=== PATIENT | male | born 1955 | race Caucasian/White ===

== ENCOUNTER 2018-06-15 14:39 | Inpatient (IN) | payer MEDICARE, MEDICAID ==
[2018-06-15] MEDS ORDERED: Diltiazem 125 MG/25 ML ONE (15:06)
[2018-06-15] MEDS ORDERED: Acetaminophen 325 MG TAB PO PRN (16:00)
[2018-06-15] MEDS ORDERED: HYDROcodone/Acetaminophen 5/325 mg Tablet PO PRN ×2 (16:00)
[2018-06-15 16:10] LABS: Lavender RECEIVED; Red RECEIVED
[2018-06-15 16:12] LABS: #Lymphocytes 1.3 thou/uL (1.20-3.40); #Monocytes 0.5 thou/uL (0.11-0.59); #Neutrophils 6.9 thou/uL (1.40-6.50); %Basophils 0.6 % (0.0-1.0); %Eosinophils 0.3 % (0.0-10.0); %Lymphocytes 14.8 % (21.0-51.0); %Monocytes 5.6 % (0.0-10.0); %Neutrophils 78.6 % (42.0-75.0); Hemoglobin 15.6 g/dL (14.0-18.0); Mean Corpuscular HGB CONC 32.7 g/dL (32.0-36.0); Mean Corpuscular Hemoglobin 33.2 pg (27.0-31.0); Mean Platelet Volume 7.9 fL (7.4-10.4); Platelet Count 167 thou/uL (130-400); RBC Distribution Width 12.2 % (11.5-14.5); Red Blood Cell (RBC) Count 4.71 mill/uL (4.70-6.10); White Blood Cell (WBC) Count 8.8 thou/uL (4.8-10.8)
[2018-06-15 16:23] LABS: Prothrombin Time 13.5 SEC (12.0-14.7)
[2018-06-15 16:24] LABS: PTT 29.5 SEC (22.9-36.1)
[2018-06-15] MEDS ORDERED: Diltiazem 125 MG in Sodium Chloride 0.9% 100 ML IVPB SCH (16:30)
[2018-06-15] MEDS ORDERED: Aspirin Chewable 81 MG TAB ONE (16:35)
[2018-06-15 16:36] LABS: ALT (SGPT) 21 U/L (8-55); AST (SGOT) 19 U/L (5-34); Albumin 3.7 g/dL (3.4-4.8); Alkaline Phosphatase 75 U/L (40-150); Anion Gap 13 mmol/L (10-20); BUN (Urea Nitrogen) 19 mg/dL (8.4-25.7); Bilirubin, Total 0.5 mg/dL (0.2-1.2); Calc. Creatinine Clearance 0 mL/min (70-130); Calcium 8.7 mg/dL (7.8-10.44); Carbon Dioxide 23 mmol/L (23-31); Chloride 106 mmol/L (98-107); Estimated GFR-MDRD 53; Globulin 2.5 g/dL (2.4-3.5); Glucose 94 mg/dL (80-115); Potassium 4.1 mmol/L (3.5-5.1); Protein, Total 6.2 g/dL (5.8-8.1); Sodium 138 mmol/L (136-145)
[2018-06-15] MEDS ORDERED: Lidocaine Viscous Sol 2% 15 ml UD Cup ONE ×2 (17:38→17:42)
[2018-06-15 20:29] VITALS: BMI 32.3
[2018-06-15] MEDS ORDERED: Lorazepam 2 MG/ML VIAL SLOW IVP PRN (21:05)
--- NOTE | 2018-06-16 01:07 | HP ---
PRIMARY CARE DOCTOR: The patient has no PCP. TIME OF EVALUATION: 08:25 p.m. CHIEF COMPLAINT: Seizure. 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 He came to the hospital after having an episode of seizure. This is the first time the patient had a seizure, generalized tonic-clonic episode with loss of consciousness. No clear triggers. No alleviating factors. The patient had a CT head that was normal. For that reason, he was transferred from [place]. Symptoms are severe. Also, the patient has associated atrial fibrillation with RVR, was placed on Cardizem drip and for that reason, sent to ICU. The heart rate has been better controlled as of now. No clear triggers. No alleviating factors. REVIEW OF SYSTEMS: Unable to fully obtain as patient is nonverbal. This was asked with the mom and with the mom. It seems like was positive for seizures. No other significant fever, chills, cough. No shortness of breath. No leg swelling per mother report. PAST MEDICAL HISTORY: Hypercholesterolemia, MR. SURGICAL HISTORY: Rotator cuff repair. PSYCH HISTORY: No previous psych history. FAMILY HISTORY :Reviewed and non contributory for current presentation SOCIAL HISTORY: No alcohol, no drugs. No smoking history. ALLERGIES: NO KNOWN DRUG ALLERGIES. REPORTED MEDICATIONS: 1. Zetia. 2. Singulair. PHYSICAL EXAMINATION: VITAL SIGNS: Blood pressure 178/151 with heart rate 150, respiratory rate was 18, temperature 98.7. GENERAL APPEARANCE: The patient is alert, oriented, in no acute distress, nonverbal. HEENT: Eyes, normal conjunctiva. Moist oral mucosa. Anicteric. No JVD. RESPIRATORY: Bilateral air entry. No rales. No wheezing. Symmetric expansion. CARDIOVASCULAR: Normal rate, regular rhythm. No murmurs or gallops. No edema. ABDOMEN: Soft. Normal bowel sounds. MUSCULOSKELETAL: Baseline range of motion and strength. No tenderness. SKIN: Warm, intact. No pallor. No rash. No redness. Peripheral pulses are present. Capillary refill seems to be intact. NEUROLOGIC: No evidence of any new focal weakness. The patient is nonverbal, that is his baseline. Cranial nerves seem to be intact. PSYCHIATRIC: The patient is in good mood. No anxiety. Optimal judgment. IMAGING DATA: EKG was reviewed. The patient has atrial fibrillation with rapid ventricular response. Ventricular rate 166, QRS 82, QT corrected 495, nonspecific ST and T-wave abnormalities. LABORATORY DATA: Labs were reviewed. The patient has white count 8.8, hemoglobin 15.6, MCV 101, platelet count 167. Coagulation was normal. Chemistries; sodium 138, potassium 4.1, chloride 106, carbon dioxide 23, anion gap 13, BUN 19, creatinine 1.37 and we do not have records of previous admissions. GFR 53, glucose 94, lactic acid 1.2, calcium 8.7, total bilirubin 0.5. LFTs were normal. Troponin was negative x1. ASSESSMENT AND PLAN: The patient will be placed in the hospital with following medical problems; 1. First-time seizure. We will consult Neurology, we will monitor if the patient has had any other seizures. We will treat with Ativan p.r.n. for any active episodes. 2. Atrial fibrillation with rapid ventricular response. The patient was placed on the Cardizem drip. The rate is controlled as of now. We will consult Cardiology. We will follow recommendations. 3. History of MR. The patient is in very good mood. He is nonverbal, but can communicate with gestures. Will need assistance as inpatient. 4. Deep venous thrombosis prophylaxis. 5. Hyperlipidemia. Reconcile home medications. Low-cholesterol diet is advised. Job ID: [id number] [facility]
--- NOTE | 2018-06-16 14:20 | ULT ---
BILATERAL RENAL ULTRASOUND: HISTORY: Gross hematuria. FINDINGS: The right kidney measures 11 cm in length and the left kidney measures 10.2 cm in length. No hydrone phrosis is seen on either side. A 1.3 cm cyst is noted in the left kidney. There is a Walter cathete r in the urinary bladder. IMPRESSION: Left renal cyst. POS: [facility]
--- NOTE | 2018-06-16 14:54 | CON ---
DATE OF CONSULTATION: 06/16/2018 REASON FOR CONSULTATION: Consultation was originally consulted for retention and Walter placement after Walter trauma. I advised them on what to place and they did this easily without any assistance. There was concern for 1300 in the bladder upon placement. 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 His mother reports that he has seen Dr. Ramsey in the past. This was a few years ago and it was for not emptying his bladder well or prostate issues. She is not exactly sure what surgery was done, but Dr. Ramsey did a surgery possibly on his prostate and at 1 point, he had a catheter for 8 weeks. The last time he saw Dr. Ramsey, he wanted to replace the catheter. The patient refused and they have not been back since and that was at least 2 or 3 years ago or more. I have asked to try to get these records so that I can have a better idea of the prior history. She notes currently they are not taking any medicine for the prostate, but possibly he did take tamsulosin and finasteride in the past; she is not sure. Normally, he has frequency q.2 to 3 hours and nocturia x2. He does feel as though he has to push, but he does feel empty. He reports gross hematuria when asked about blood in the urine, but the mother is not sure that he fully understands the question. But he does report that this has happened twice previously; it was before the catheter trauma. There is no history of urinary tract infections or stones. PAST MEDICAL HISTORY: Significant for the patient being nonverbal with a brain injury at as well as high cholesterol. PAST SURGICAL HISTORY: Includes rotator cuff and the above-mentioned urologic procedure. MEDICATIONS: Include; 1. Zetia. 2. Singulair. ALLERGIES: NONE. SOCIAL HISTORY: He does not smoke, drink, or use drugs. Lives with his mother at home. REVIEW OF SYSTEMS: Reveal there was concern for atrial fibrillation, which is new. He has not had prior arrhythmias. He did not have constipation and normally has loose movements daily. There has been no nausea, vomiting, pain, or other concerns other than the original seizure, which occurred, at which point, he was taken to an outside facility and a catheter was placed and the patient pulled it out and then another was placed for the 1300 as mentioned of yellow urine. He has an elevated creatinine, but the mother denies any renal insufficiency, and she is not aware of any prostate cancer screening with a blood test or finger exam or rectal exam. FAMILY HISTORY: Mother is alive and well without cancer, but is concerned about getting her own medicines when she is away from home and does not have them currently. PHYSICAL EXAMINATION: GENERAL: He is sitting up, eating breakfast comfortably. VITAL SIGNS: Temperature 98.8, blood pressure 103/63, heart rate 62, saturating 93% on room air, and 1150 of yellow urine has come out overnight. HEART: Regular rate and rhythm. No murmurs, gallops, or rubs. LUNGS: Clear to auscultation bilaterally. ABDOMEN: Soft, nondistended, and nontender with normoactive bowel sounds. : Testes were descended bilaterally without masses. Phallus was circumcised with a Walter catheter in place and secured, draining yellow urine. It did not appear to be stuck in the prostate. RECTAL: Digital rectal exam was deferred. EXTREMITIES: He had no significant lower extremity edema. HEENT: No scleral icterus. NECK: No JVD. NEUROLOGIC: Cooperative and appropriate. LABORATORY DATA: CBC from 06/15 reveals normal H and H and platelets. Coags were normal. BUN and creatinine were 19 and 1.37. I do not have urinalysis. ASSESSMENT AND PLAN: A 62-year-old gentleman with some significant prior history of either retention with or without benign prostatic hyperplasia, for which he has seen Dr. Ramsey before. I have asked to try to get these records. He now has Walter trauma from self removal with a catheter in place and draining fine currently. I would document a urine to ensure there is no concern for infection. We will try to get records from Dr. Ramsey and I would add tamsulosin for now. Given the concern about the gross hematuria that may have occurred prior to the Walter trauma, I will order an ultrasound. He would have an indication for outpatient cystoscopy if there was hematuria prior to the Walter trauma. Job ID: [id number] [facility]
--- NOTE | 2018-06-16 16:40 | CON ---
DATE OF CONSULTATION: 06/16/2018 REASON FOR CONSULTATION: Atrial fibrillation with RVR. HISTORY OF PRESENT ILLNESS: Mr. Guerrier is a very pleasant 62-year-old white gentleman, who comes to the hospital for a seizure. He was found to have tonic clonic episode and loss of consciousness by his mother, who is his primary zoo caretaker as he has what appears to be cerebral palsy. He was found to be in atrial fibrillation with RVR on admission, was started on a Cardizem drip, and eventually converted back into sinus bradycardia, heart rate in the 50s. Currently, Mr. Guerrier is not verbal because of his cerebral palsy and is unable to verbalize anything, but his mother tells me that he has never been told that he has atrial fibrillation or anything like this. PAST MEDICAL HISTORY: 1. Hyperlipidemia. 2. Cerebral palsy/mental retardation. PAST SURGICAL HISTORY: Rotator cuff repair. SOCIAL HISTORY: No alcohol, tobacco, or drugs. Mother is decision maker. ALLERGIES: NO KNOWN DRUG ALLERGIES. OUTPATIENT MEDICATIONS: 1. Zetia. 2. Singulair. REVIEW OF SYSTEMS: Unobtainable as the patient is nonverbal. PHYSICAL EXAMINATION: VITAL SIGNS: Temperature 98.7, pulse 70, respiratory rate 19, saturating 94% on room air, and blood pressure 120/77. GENERAL: Awake and alert, cannot assess orientation as he is nonverbal, no distress. HEENT: Normocephalic and atraumatic. NECK: Supple. LUNGS: Clear. CARDIOVASCULAR: S1 and S2. No S3 or S4. Heart rate in the 50s. ABDOMEN: Soft. Positive bowel sounds. EXTREMITIES: Trace edema. SKIN: Warm and dry. LABORATORY DATA: Laboratory work was reviewed. CBC was unremarkable. Coags were normal. Chemistry was unremarkable except for mildly elevated creatinine. Troponin is undetectable x3. EKG was reviewed, atrial fibrillation with RVR in the ER, back to sinus rhythm currently. ASSESSMENT AND PLAN: 1. Atrial fibrillation with rapid ventricular response, currently back in sinus rhythm. This is in the setting of an acute seizure. 2. Seizure disorder. Per Primary Team. 3. Urinary retention. PLAN: 1. Would discontinue diltiazem drip. Would put him on just a low dose beta sara to see if his blood pressure will be able to tolerate this. He is borderline low at that time. 2. Would recommend an aspirin for stroke prophylaxis as his CHADS-VASc score and CHADS2 score is zero. Thank you for letting us take care of your patient. We will follow. Job ID: [id number]
[2018-06-16] MEDS ORDERED: levETIRAcetam 500 MG TAB PO SCH (18:00)
[2018-06-16 18:34] LABS: Bacteria/HPF 1+ HPF (None Seen); RBC/HPF None Seen HPF (0-3); Squamous Epithelial 0-3 HPF (0-3)
[2018-06-16 18:35] LABS: Crystals/HPF 2+ AMORPH URATES HPF (Negative)
--- NOTE | 2018-06-16 20:51 | CON ---
DATE OF CONSULTATION: 06/16/2018 CONSULTING PHYSICIAN: Hospitalist Services. IMPRESSION: 1. New onset seizure with findings consistent with focal onset. 2. Atrial fibrillation with rapid ventricular response. PLAN: 1. Keppra 500 mg twice a day. 2. Office followup. HISTORY OF PRESENT ILLNESS: Mr. Guerrier is a 62-year-old male with a past history of mental retardation. He lives at home with his mother. She noted that he was acting very oddly before they left the house. He seemed to be stumbling around and bumping into furniture. On the drive to the hospital, he continued to look about in a very odd manner. When he arrived in the parking lot, he suddenly vomited and then went into a convulsion. She got him to the emergency room, where he was evaluated. He had a CT scan of the brain done, which was normal. He was subsequently transferred here. He had cardiac arrhythmia and has been evaluated by Cardiology as well. There was no past history of sleep deprivation, drug use, or illness prior to the onset. PAST HISTORY: Rotator cuff issues. ALLERGIES: NONE. SOCIAL HISTORY: No tobacco or alcohol use. FAMILY HISTORY: Noncontributory. MEDICATIONS: Medicine list was reviewed. REVIEW OF SYSTEMS: Limited to what his mother could tell me. He really could not answer questions appropriately. PHYSICAL EXAMINATION: GENERAL: He is a well-nourished, middle-aged man, in no distress. VITAL SIGNS: Pulse 66, respirations 16, he is afebrile. HEENT: Pupils are equal and reactive. Conjunctivae clear. Oropharynx clear. His dentition is ground down diffusely. NECK: Supple. No lymphadenopathy. ABDOMEN: Soft and nontender. EXTREMITIES: No cyanosis, clubbing, or edema. NEUROLOGIC: He was able to follow some simple commands. He was limitedly verbal. Cranial nerves were intact. Motor exam showed good strength bilaterally. There is no fix or drift. Sensation was grossly intact. No tremor. Dysmetria was present. He can walk independently. SUMMARY: Given the focal onset of seizure activity in a gentleman of his age with mental retardation, I suspect this will be a recurrent problem. Therefore, I will go ahead and start him on anticonvulsants. Job ID: [id number]
--- NOTE | 2018-06-16 20:55 | CON ---
DATE OF CONSULTATION: 06/16/2018 HISTORY OF PRESENT ILLNESS: Mr. Guerrier is a very pleasant 62-year-old male who is cared for by his mom. Apparently, he was a very difficult delivery with forceps and was never quite right growing up. He is very cooperative. He helps her take care of the house and take care of the yard and is very functional on most days. Yesterday, she noted that he was bumping into things in the house. He first bumped into a recliner and then into the couch as they were getting ready for her to go over for physical therapy. When they got in the car, he started staring at different things and became less verbal. When she got physical therapy she went in and told him she was taking him to the emergency room and by the time he got to the emergency room, he was fairly rigid. She could not get him out of the car. When they got him into the emergency department, he had a generalized tonoclonic seizure. The progression of this lasted probably 15 or 20 more minutes up to a point where he had a generalized seizure. It is reported that he had an unremarkable head CT. It is unclear to me whether or not this was a CAT scan done with or without contrast, I suspect it is without contrast. He has a limited ability to give a history and most of it is provided in an excellent fashion by his mother. He has had rotator cuff surgery in the past and prostate surgery in the past. Urology was consulted for possible urinary retention. He is on Singulair for allergies and Zetia for lipid disorder. He is on no new medications that she has given him. FAMILY HISTORY: Non contributory. There is no drug allergy reported. SOCIAL HISTORY: He is a nonsmoker, nondrinker, nondrug user, lives with her all the time. His father 10 years ago after knee replacement surgery at [facility]. Apparently after surgery, developed severe abdominal pain. His mother tells me Dr. Israel saw him in consultation and he had already perforated duodenal ulcer and ended up dying of sepsis. She unfortunately had to stay at home with him (Dennys) since he had vertigo that week and she missed being at her 's bedside the whole time, he was in the hospital she says. REVIEW OF SYSTEMS: 10 point review of systems completed, there are no positives in the review of systems. PAST HISTORY: He has had no history of a seizure or a stroke in the past. He was found to be in atrial fibrillation when he arrived to the hospital. PHYSICAL EXAMINATION: VITAL SIGNS: His heart rate is in the 70s, blood pressure 126/71 at noon, respiratory rate is in the teens. GENERAL: He is very pleasant, cooperative, and smiling. He held out his hand when I walked in the room and wanted to keep shaking my hand. HEENT: Sclerae are anicteric. He appears healthy and well fed. NECK: Supple. LUNGS: Clear. HEART: Irregular. S1 and S2 are normal. I did not hear a murmur. ABDOMEN: Soft and nontender. EXTREMITIES: Without clubbing, cyanosis, or edema. IMPRESSION: New onset seizures. I suspect with atrial fibrillation he may have had an embolic event at some point, which created a focus for electrical activity and seizures. He really needs MR imaging of his brain with and without contrast. It would be very likely that he will need anesthesia since he is very fidgety, tends to move all over the bed. She says he has had MRIs in the past and was able to lay still, but I doubt he will be able to lay still for a brain MRI. I will be happy to follow the other physicians caring for him. Cardiology should be consulted for his atrial fibrillation if they have not done. There are no lab abnormalities such as hypercalcemia that had been identified, although there is no ionized calcium it gets unlikely that with a normal serum calcium and normal proteins, this would be an issue. I doubt he has a tumor, but this needs to be ruled out. TIME SPENT: This is 50-minute a consult, with greater than 50% of the time spent on the unit coordinating care. Job ID: [id number] [facility]
[2018-06-16] MEDS: Montelukast Sodium 10 mg Tablet PO SCH (20:56)
[2018-06-16] MEDS: Ezetimibe 10 MG TAB PO SCH (20:56)
[2018-06-16] MEDS: levETIRAcetam 500 MG TAB PO SCH (20:57)
[2018-06-16] MEDS: Nitrofurantoin Monohyd/M-Cryst 100 MG CAP PO SCH (20:58)
--- NOTE | 2018-06-16 22:22 | PDOC.PN ---
- Subjective Encounter Start Date: 06/16/18 Encounter Start Time: 08:50 Essentially non-verbal. Spoke with his mother. He is at his baseline now. - Objective Vital Signs & Weight: Vital Signs (12 hours) Temp Pulse Ox 06/16/18 20:00 97 06/16/18 19:20 98.7 F 06/16/18 11:08 98.7 F Weight Weight 226 lb 5 oz Most Recent Monitor Data Heart Rate from ECG 63 NIBP 111/73 NIBP BP-Mean 85 Respiration from ECG 14 SpO2 94 I&O: 06/15/18 06/16/18 06/17/18 06:59 06:59 06:59 Intake Total 130 1400 Output Total 1150 900 Balance -1020 500 Result Diagrams: 06/15/18 16:03 06/15/18 16:02 Phys Exam - Physical Examination Constitutional: NAD Pleasant. Cooperative. Respiratory: no wheezing, no rales, no rhonchi, clear to auscultation bilateral Cardiovascular: RRR, no significant murmur, no rub Gastrointestinal: soft, non-tender, no distention, positive bowel sounds Musculoskeletal: no edema Neurological: non-focal Dx/Plan (1) Seizure Code(s): R56.9 - UNSPECIFIED CONVULSIONS Status: Acute (2) Atrial fibrillation Code(s): I48.91 - UNSPECIFIED ATRIAL FIBRILLATION Status: Acute (3) Developmental delay, moderate Code(s): R62.50 - UNSP LACK OF EXPECTED NORMAL PHYSIOL DEV IN CHILDHOOD Status : Acute - Plan * Neurology consulted. * Cardiology consulted. * Will likely need shelter antiepileptics. * Converted to NSR. Cards recommended beta sara.
[2018-06-17 07:41] LABS: #Basophils 0.1 thou/uL (0.0-0.2); #Eosinphils 0.1 thou/uL (0.0-0.7); #Lymphocytes 2.8 thou/uL (1.20-3.40); #Monocytes 0.6 thou/uL (0.11-0.59); #Neutrophils 2.9 thou/uL (1.40-6.50); %Basophils 0.8 % (0.0-1.0); %Eosinophils 1.9 % (0.0-10.0); %Lymphocytes 42.9 % (21.0-51.0); %Monocytes 8.9 % (0.0-10.0); %Neutrophils 45.6 % (42.0-75.0); Hemoglobin 14.4 g/dL (14.0-18.0); Mean Corpuscular HGB CONC 34.4 g/dL (32.0-36.0); Mean Corpuscular Hemoglobin 34.8 pg (27.0-31.0); Mean Platelet Volume 7.7 fL (7.4-10.4); Platelet Count 152 thou/uL (130-400); RBC Distribution Width 12.2 % (11.5-14.5); Red Blood Cell (RBC) Count 4.13 mill/uL (4.70-6.10); White Blood Cell (WBC) Count 6.4 thou/uL (4.8-10.8)
[2018-06-17 08:01] LABS: Anion Gap 12 mmol/L (10-20); BUN (Urea Nitrogen) 21 mg/dL (8.4-25.7); Calc. Creatinine Clearance 81 mL/min (70-130); Calcium 8.9 mg/dL (7.8-10.44); Carbon Dioxide 26 mmol/L (23-31); Chloride 107 mmol/L (98-107); Estimated GFR-MDRD 52; Glucose 91 mg/dL (80-115); Potassium 4.2 mmol/L (3.5-5.1); Sodium 141 mmol/L (136-145)
[2018-06-17] MEDS: Nitrofurantoin Monohyd/M-Cryst 100 MG CAP PO SCH ×2 (09:11→21:39)
[2018-06-17] MEDS: levETIRAcetam 500 MG TAB PO SCH ×2 (09:11→21:39)
[2018-06-17] MEDS: Aspirin 81 mg Enteric Coated Tablet PO SCH (09:12)
--- NOTE | 2018-06-17 10:03 | PRG ---
DATE OF SERVICE: 06/17/2018 SUBJECTIVE: I was able to review the records from Dr. Ramsey, which showed that the patient was last seen in March of 2017. Prior to that, he had retention by September of 2015 and wore catheter until his TURP on 11/23/2015, and voided thereafter, but did have retention a month later, but was emptying adequately by January of 2016. Then by January of 2017, his PVR was greater than 700, then greater than 800 and that is when it was asked that he have a catheter put back in and apparently refused at that time and they have not been back since. I reviewed this with the patient and mother and I think it is best for him to go with the catheter since the bladder was distended to at least 1300 if not more previously and to allow significant decompression of the bladder before attempting another voiding trial. I would also consider urodynamics if the patient was tolerant of these in the office in order to identify whether there are concerns for obstruction versus a neurogenic bladder. Cystoscopy may also be helpful to assess for recurrent or residual prostatic tissue and also given the concerns for blood prior to the Walter trauma would be indicated for that. OBJECTIVE: GENERAL: On exam, he is comfortable in the bed, but was annoyed by the beeping of the SCDs, which I was able to hook back up and calmed him and he was otherwise appropriate. VITAL SIGNS: He has been afebrile with vital signs stable. He put out 1700 over the last shift with clear urine draining yellow in the bag and secured. LABORATORY DATA: Labs reveal a urine that showed 1+ bacteria, so I started Macrobid for him for this reason and would continue this for a week. A renal ultrasound was also obtained, which revealed a left renal cyst, but no hydro, no masses, no stones, and a decompressed bladder without any concern for masses in the bladder. ASSESSMENT AND PLAN: We have a 62-year-old gentleman with chronic BPH and incomplete emptying, status post transurethral resection of the prostate in 2016 , who may or may not have recurrent or residual obstruction. For this reason, I would continue tamsulosin and increase it to twice a day as well as add finasteride until it can be further evaluated as an outpatient with the hopes of ultimately getting him voiding on his own. But for now, when he is ready for discharge, I would send him home with a catheter and have him follow up in the office for a voiding trial and ultimately anticipate cystoscopy and urodynamics as well. Job ID: [id number] MTDJose Francisco
[2018-06-17] MEDS ORDERED: Finasteride 5 MG TAB PO SCH (10:45)
[2018-06-17] MEDS ORDERED: ALPRAZolam 0.25 MG TAB PO SCH (12:45)
--- NOTE | 2018-06-17 16:43 | PRG ---
DATE OF SERVICE: 06/17/2018 SUBJECTIVE: Dennys Guerrier has no complaints. He is in a great mood today. He has had no further seizures. OBJECTIVE: VITAL SIGNS: Afebrile. Blood pressure 118/68, heart rate 56, respiratory rate 15. LUNGS: Clear. HEART: Regular rhythm. ABDOMEN: Soft. I am concerned he did move considerably during the attempted MRI, so I have written for 0.25 mg of alprazolam to take 30 minutes prior to his MRI. It is unclear when that will be done. The issues that have to be addressed are: 1. Did he have a stroke leading to this seizure. 2. Will he need anticoagulation for his atrial fibrillation. Dr. Blackwell is following along with the other physicians. Plan is to send him home with catheter drainage while we wait for the prostate medicines to start working. I will continue to follow as long as he is in the hospital. I met with the mother and answered all of her questions. Job ID: [id number]
--- NOTE | 2018-06-17 17:16 | PDOC.CTH ---
Cardiology Progress Note - Subjective No new issues. - Objective Vital Signs Temp 06/17/18 15:28 97.1 F L 06/17/18 11:50 97.1 F L 06/17/18 07:09 98.0 F Weight 229 lb 1 oz 06/16/18 06/17/18 06/18/18 06:59 06:59 06:59 Intake Total 130 2360 Output Total 1150 1700 1300 Balance -1020 660 -1300 - Physical Examination General/Neuro: NAD Neck: no JVD present Lungs: CTA, unlabored respirations Heart: RRR Abdomen: NT/ND Extremities: other: (no edema) - Telemetry Telemetry Rhythm: NSR - Labs Result Diagrams: 06/17/18 07:28 06/17/18 07:28 Troponin/CKMB Troponin I Less than 0.010 ng/mL (< 0.028) 06/15/18 22:49 - Assessment/Plan 1. Afib RVR 2. Seizure new onset. PLAN; - MRI pending to make sure this is not a new CVA from afib causing a seizure. - If acute CVA confirmed then will need chronic anticoagulation.
--- NOTE | 2018-06-17 20:28 | PDOC.PN ---
- Subjective Encounter Start Date: 06/17/18 Encounter Start Time: 13:00 Doing fine. No new complaints. - Objective Vital Signs & Weight: Vital Signs (12 hours) Temp 06/17/18 15:28 97.1 F L 06/17/18 11:50 97.1 F L Weight Weight 229 lb 1 oz Most Recent Monitor Data Heart Rate from ECG 92 NIBP 118/68 NIBP BP-Mean 84 Respiration from ECG 15 SpO2 94 I&O: 06/16/18 06/17/18 06/18/18 06:59 06:59 06:59 Intake Total 130 2360 1080 Output Total 1150 1700 2200 Balance -1020 660 -1120 Result Diagrams: 06/17/18 07:28 06/17/18 07:28 Phys Exam - Physical Examination Constitutional: NAD (N) non-verbal. Respiratory: no wheezing, no rales, no rhonchi, clear to auscultation bilateral Cardiovascular: RRR, no significant murmur, no rub Gastrointestinal: soft, non-tender, no distention Musculoskeletal: no edema Neurological: non-focal Dx/Plan (1) Seizure Code(s): R56.9 - UNSPECIFIED CONVULSIONS Status: Acute (2) Atrial fibrillation Code(s): I48.91 - UNSPECIFIED ATRIAL FIBRILLATION Status: Acute (3) Developmental delay, moderate Code(s): R62.50 - UNSP LACK OF EXPECTED NORMAL PHYSIOL DEV IN CHILDHOOD Status : Acute - Plan * On Keppra. Tolerating. * MRI brain to assess for pathology to account for new onset seizures. * Good rate control with beta sara.
[2018-06-17] MEDS: Montelukast Sodium 10 mg Tablet PO SCH (21:39)
[2018-06-17] MEDS: Tamsulosin HCl 0.4 MG CAP PO SCH (21:39)
[2018-06-17] MEDS: Ezetimibe 10 MG TAB PO SCH (21:39)
[2018-06-18] MEDS ORDERED: Finasteride 5 MG TAB PO SCH (09:00)
[2018-06-18] MEDS: Tamsulosin HCl 0.4 MG CAP PO SCH (09:01)
[2018-06-18] MEDS: levETIRAcetam 500 MG TAB PO SCH (09:01)
[2018-06-18] MEDS: Aspirin 81 mg Enteric Coated Tablet PO SCH (09:01)
[2018-06-18] MEDS: Nitrofurantoin Monohyd/M-Cryst 100 MG CAP PO SCH (09:02)
--- NOTE | 2018-06-18 09:38 | MRI ---
MRI BRAIN WITHOUT CONTRAST: HISTORY: New-onset seizure. COMPARISON: None. FINDINGS: No hemorrhage on the coronal gradient sequence. Coronal images demonstrate symmetric signal intensit y of the hippocampi. No MR evidence of mesiotemporal sclerosis. Central arterial flow voids are maintained. Absent restricted diffusion. No parenchymal mass, mass effect, or midline shift. Age-appropriate grain volume. Cortical stapleton-whi te matter differentiation is preserved. No evidence of hydrocephalus. Calvarium has a normal marrow signal intensity. Midline brain parenchymal structures are unremarkabl e. Adequate aeration of the sinuses and mastoid air cells. IMPRESSION: Unremarkable noncontrast brain MRI. POS: [facility]
[2018-06-18 15:14] VITALS: TEMP 98.6
--- NOTE | 2018-06-18 16:00 | PRG ---
DATE OF SERVICE: 06/18/2018 SUBJECTIVE: Dennys Guerrier has had no seizures. He is in no distress. He is awaiting his echocardiogram tentatively scheduled for discharge today. OBJECTIVE: VITAL SIGNS: He is afebrile. Blood pressure is 120/61, heart rate is 59. LUNGS: Clear. HEART: Regular rhythm. S1 and S2 are normal. ABDOMEN: Soft and nontender. DIAGNOSTIC STUDIES: He did not get contrast with his MRI, but his noncontrast MRI yesterday was unremarkable. IMPRESSION: 1. Status post seizures of unclear origin. 2. 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 3. Atrial fibrillation, now in sinus rhythm. Decisions about anticoagulation will be made by Cardiology. He is stable for discharge. He will go home with an indwelling Walter catheter and need to follow up with Dr. Blackwell at some point, preferably on the same day that he follows up with the urologist here, Dr. Henry. I will see him as needed in the future. Job ID: [id number]
--- NOTE | 2018-06-18 17:00 | PRG ---
DATE OF SERVICE: 06/18/2018 SUBJECTIVE: The patient is set up to go home, although they are awaiting the echo report before he can actually be released. He has a catheter draining fine and yellow urine. He has had no complaints or concerns. We reviewed the plan for outpatient followup and trying a voiding trial as well as continuing tamsulosin twice a day and finasteride once a day. We discussed cystoscopy and how it may be beneficial to give him Valium prior to cystoscopy in the office as the mother thinks that would be helpful for him, so we can arrange this accordingly. OBJECTIVE: VITAL SIGNS: He has been afebrile with vital signs stable. His urine output has been close to 3 L for the last 24 hours and is draining yellow urine without any concern for clots. The urine culture from 06/16, was negative. They should complete seven days total of Macrobid. ASSESSMENT: We have a 62-year-old male with retention and indwelling for now that he discharged home with. He should continue tamsulosin twice a day, finasteride once a day, and complete seven days of the Macrobid. He will follow up in the office for both a voiding trial and cystoscopy. Job ID: [id number] [facility]
--- NOTE | 2018-06-18 17:30 | PDOC.CTH ---
Cardiology Progress Note - Subjective He is doing well. No chest pain. - Objective Vital Signs Temp Pulse Ox 06/18/18 15:14 98.6 F 06/18/18 11:07 97.8 F 06/18/18 07:52 99 06/18/18 07:27 98.0 F Weight 229 lb 1 oz 06/17/18 06/18/18 06/19/18 06:59 06:59 06:59 Intake Total 2360 1080 Output Total 1700 2850 Balance 660 -1770 - Physical Examination General/Neuro: NAD Neck: no JVD present Lungs: CTA, unlabored respirations Heart: RRR Abdomen: NT/ND Extremities: other: (no edema) - Telemetry Telemetry Rhythm: NSR - Labs Result Diagrams: 06/17/18 07:28 06/17/18 07:28 Troponin/CKMB Troponin I Less than 0.010 ng/mL (< 0.028) 06/15/18 22:49 - Assessment/Plan 1. Afib RVR 2. Seizure new onset. PLAN; - No stroke on MRI - LV function normal with normal diastolic function. - May d/c home on a a low dose aspirin only for stroke prophylaxis. - Follow up in the office in 1 month.
== END 2018-06-18 18:25 | disposition home or self-care (01) | DRG 101 ==
LOC: ERS 14:39 → IMCU/EMU 17:22
PROVIDERS: ADMIT Emergency Medicine; ATTEND Emergency Medicine
PROC: 0T9B70Z Drainage of Bladder with Drainage Device, Via Natural or Artificial Opening (ICD-10-PCS; principal; 2018-06-16)
DX: R56.9 Unspecified convulsions (principal); I48.91 Unspecified atrial fibrillation; I34.0 Nonrheumatic mitral (valve) insufficiency; E78.5 Hyperlipidemia, unspecified; R33.9 Retention of urine, unspecified; R31.9 Hematuria, unspecified; T83.018A Breakdown (mechanical) of other urinary catheter, initial encounter; R62.50 Unspecified lack of expected normal physiological development in childhood; F79 Unspecified intellectual disabilities; Z98.890 Other specified postprocedural states; Y83.1 Surgical operation with implant of artificial internal device as the cause of abnormal reaction of the patient, or of later complication, without mention of misadventure at the time of the procedure
CPT/HCPCS: 36415; 51702; 70551; 76770; 80048; 80053; 81015; 83605; 84484; 85025; 85610; 85730; 87086; 93005; 93306; 96361; 96365; 96366; 96376; J7050

== ENCOUNTER 2018-08-04 13:54 | Outpatient (CLI) | payer MEDICARE, OTHER ==
[2018-08-04 15:21] LABS: Hemoglobin 14.6 g/dL (14.0-18.0); Mean Corpuscular HGB CONC 33.5 g/dL (32.0-36.0); Mean Corpuscular Hemoglobin 33.3 pg (27.0-31.0); Mean Corpuscular Volume 99.5 fL (78.0-98.0); Mean Platelet Volume 8.1 fL (7.4-10.4); Platelet Count 183 thou/uL (130-400); RBC Distribution Width 11.9 % (11.5-14.5); Red Blood Cell (RBC) Count 4.39 mill/uL (4.70-6.10); White Blood Cell (WBC) Count 5.7 thou/uL (4.8-10.8)
[2018-08-04 15:34] LABS: Anion Gap 14 mmol/L (10-20); BUN (Urea Nitrogen) 19 mg/dL (8.4-25.7); Calc. Creatinine Clearance 0 mL/min (70-130); Calcium 9.1 mg/dL (7.8-10.44); Carbon Dioxide 25 mmol/L (23-31); Chloride 106 mmol/L (98-107); Estimated GFR-MDRD 53; Glucose 89 mg/dL (80-115); Potassium 4.3 mmol/L (3.5-5.1); Sodium 141 mmol/L (136-145)
== END 2018-08-04 13:55 | disposition home or self-care (01) ==
LOC: LABBT 13:54
PROVIDERS: ATTEND Urology
DX: Z01.812 Encounter for preprocedural laboratory examination (principal); N40.0 Benign prostatic hyperplasia without lower urinary tract symptoms; R33.9 Retention of urine, unspecified; R31.9 Hematuria, unspecified; R39.14 Feeling of incomplete bladder emptying; N39.0 Urinary tract infection, site not specified
CPT/HCPCS: 80048; 85027; 87077; 87186

== ENCOUNTER 2018-08-11 10:18 | Day surgery (SDC) | payer MEDICARE, MEDICAID ==
[2018-08-04 14:16] VITALS: BMI 28.6
[2018-08-11] MEDS ORDERED: cefTRIAXone\\ROCEPHIN 1 GM VIAL ONE (11:04)
[2018-08-11] MEDS ORDERED: Sodium Chloride 0.9% 100 ML ONE (11:04)
[2018-08-11] MEDS ORDERED: Dexamethasone 4 mg/ml Vial ONE (11:05)
[2018-08-11] MEDS ORDERED: Dexamethasone 10 MG/ML VIAL IVPB SCH (11:15)
[2018-08-11] MEDS ORDERED: cefTRIAXone\\ROCEPHIN 1 GM in Sodium Chloride 0.9% 100 ML IVPB SCH (11:15)
[2018-08-11] MEDS ORDERED: Furosemide 20 MG/2 ML VIAL ONE (11:23)
[2018-08-11] MEDS ORDERED: B & O ONE (11:23)
[2018-08-11] MEDS ORDERED: Fentanyl 100 MCG/2 ML VIAL ONE ×2 (11:32)
[2018-08-11] MEDS ORDERED: Midazolam HCl 2 mg/2 ml Vial ONE (11:32)
--- NOTE | 2018-08-12 00:59 | OP ---
DATE OF PROCEDURE: 08/11/2018 PREOPERATIVE DIAGNOSES: Gross hematuria, benign prostatic hyperplasia, prior retention. POSTOPERATIVE DIAGNOSES: Gross hematuria, benign prostatic hyperplasia, prior retention. PROCEDURE PERFORMED: Cystoscopy with GreenLight laser vaporization of bladder neck contracture and the prostate itself using 98,931 joules. SPECIMENS: Prostate. COMPLICATIONS: None. DRAINS REMAININ-Hong [place]er 2-way. ESTIMATED BLOOD LOSS: Less than 50 mL. ANESTHESIA: General with laryngeal mask airway. INDICATIONS: The patient is a 62-year-old male, who was initially seen with bladder outlet obstruction and hematuria in the hospital. Workup was negative from an upper tract standpoing. I attempted to do cystoscopy as an outpatient. However, he did not tolerate this as an outpatient. He also has a history of prior TURP in 2017 and already went into retention since then, so has concern for either persistent or regrowth of the prostate and wanted to evaluate him for this in the office as well; however, it was unable to do so. So, we just planned for if there is any obstructing tissue noted, we would take care of it with GreenLight laser vaporization of prostate at the same time. DESCRIPTION OF PROCEDURE: The patient was brought into the room by Anesthesia, laid on the table in supine position. After receiving general anesthetic, the legs were placed in lithotomy position and his perineum was prepped and draped in the usual sterile fashion. Using a 21-Hong Konger cystoscope initially, the urethra was traversed and the bladder was inspected. There were no lesions throughout the mucosa. The ureteral orifices were in normal position. There was elevated and very hypertrophic bladder neck contraction or trabeculation connecting the ureteral orifices and a hollowed-out portion of it. Anterior proximal portion of the prostatic urethra with persistent or residual or recurrent tissue distally, so I decided that I would take the bladder neck contraction down and open that neck up and take it all the way down to the floor and take away the distal obstruction as well, so power of 80 was used for most of the case, but a power of 180 was used for any larger portion of obstructing tissue. The hypertrophic bladder neck contraction was taken down, leaving two elevated ureteral orifices as I also took the area lateral to the orifices down to the floor of the bladder. When the scope was broken apart to drain the chips and put back in, there was significant bleeding noted and that appeared to be coming from the bladder neck itself. I did take the scope out, put a catheter in, blew the balloon up and leave it on tension for approximately 5 minutes. I was filling and draining the bladder during this time; it remained clear. Then, when the Walter catheter was removed and the bladder reinspected, there was no obvious bleeding noted, so I painted any areas of concern with the power level of 80 and then with a low pressure, there was still no significant bleeding noted. So, at this point, the scope was removed and 20-Hong Konger catheter was placed in to gravity. The patient was then awakened and transferred to PACU in stable condition. Job ID: [id number] [facility]
== END 2018-08-11 15:15 | disposition home or self-care (01) ==
LOC: SDC 10:18
PROVIDERS: ATTEND Urology
PROC: 0TBC8ZZ Excision of Bladder Neck, Via Natural or Artificial Opening Endoscopic (ICD-10-PCS; principal; 2018-08-11)
DX: N32.0 Bladder-neck obstruction (principal); N40.1 Benign prostatic hyperplasia with lower urinary tract symptoms; R33.8 Other retention of urine; R39.14 Feeling of incomplete bladder emptying; I10 Essential (primary) hypertension; Z79.82 Long term (current) use of aspirin; Z79.899 Other long term (current) drug therapy
CPT/HCPCS: 88305; J0696; J1100; J1940; J2250; J3010; J7050

== ENCOUNTER 2019-01-20 20:43 | Inpatient (IN) | payer MEDICARE, MEDICAID ==
[2019-01-20 21:24] LABS: Hemoglobin 16.3 g/dL (14.0-18.0); Mean Corpuscular HGB CONC 34.2 g/dL (32.0-36.0); Mean Corpuscular Hemoglobin 33.7 pg (27.0-31.0); Mean Corpuscular Volume 98.7 fL (78.0-98.0); Platelet Count 187 thou/uL (130-400); RBC Distribution Width 12.9 % (11.5-14.5); Red Blood Cell (RBC) Count 4.82 mill/uL (4.70-6.10); White Blood Cell (WBC) Count 6.9 thou/uL (4.8-10.8)
[2019-01-20] MEDS ORDERED: Digoxin 0.5 MG/2 ML AMP ONE (21:26)
[2019-01-20] MEDS ORDERED: Magnesium 2 GM/50 ML BAG (IN WATER) ONE (21:26)
[2019-01-20 21:39] LABS: Eosinophils 2 % (0-10); Lymphocytes 53 % (21-51); MDiff Complete? YES; Monocytes 5 % (0-10); Neutrophil 40 % (42-75); Platelet Morphology Comment Appears Adequate; RBC Morphology Normal
[2019-01-20 21:43] LABS: ALT (SGPT) 21 U/L (8-55); AST (SGOT) 14 U/L (5-34); Albumin 4.1 g/dL (3.4-4.8); Alkaline Phosphatase 66 U/L (40-150); Anion Gap 9 mmol/L (10-20); BUN (Urea Nitrogen) 25 mg/dL (8.4-25.7); Bilirubin, Total 0.5 mg/dL (0.2-1.2); CK (CPK) 173 U/L (30-200); Calc. Creatinine Clearance 0 mL/min (70-130); Calcium 9.3 mg/dL (7.8-10.44); Carbon Dioxide 33 mmol/L (23-31); Chloride 103 mmol/L (98-107); Estimated GFR-MDRD 46; Globulin 2.4 g/dL (2.4-3.5); Glucose 88 mg/dL (80-115); Lipase 43 U/L (8-78); Potassium 3.9 mmol/L (3.5-5.1); Protein, Total 6.5 g/dL (5.8-8.1); Sodium 141 mmol/L (136-145)
[2019-01-20] MEDS ORDERED: Enoxaparin Sodium 100 MG/ML SYRINGE ONE (22:12)
[2019-01-20] MEDS ORDERED: Diltiazem HCl 125 MG, Admixture Fee 1 EACH in Sodium Chloride 0.9% 100 ML IVPB SCH (22:30)
[2019-01-20 23:43] LABS: Troponin I Less than 0.010 ng/mL (< 0.028)
[2019-01-21 00:42] VITALS: BMI 29.4
[2019-01-21] MEDS ORDERED: Aspirin 325 MG TAB PO SCH ×2 (01:00→09:00)
[2019-01-21] MEDS: Sodium Chloride 0.9% 1,000 ML IV SCH ×2 (01:15→13:24)
[2019-01-21 03:37] LABS: Troponin I Less than 0.010 ng/mL (< 0.028)
[2019-01-21] MEDS: Digoxin 0.5 MG/2 ML AMP SLOW IVP SCH ×2 (03:49→10:52)
[2019-01-21] MEDS: Aspirin 81 mg Enteric Coated Tablet PO SCH (08:34)
[2019-01-21] MEDS: Tamsulosin HCl 0.4 MG CAP PO SCH ×2 (08:35→20:47)
[2019-01-21] MEDS: levETIRAcetam 500 MG TAB PO SCH ×2 (08:35→20:46)
[2019-01-21] MEDS: Dicyclomine 20 MG TAB PO SCH ×2 (08:35→20:45)
[2019-01-21] MEDS: Enoxaparin Sodium 100 MG/ML SYRINGE SC SCH ×2 (08:35→20:48)
[2019-01-21] MEDS: Finasteride 5 MG TAB PO SCH (08:35)
[2019-01-21] MEDS ORDERED: Metoprolol Tartrate 25 MG TAB PO SCH (09:00)
[2019-01-21] MEDS ORDERED: Enoxaparin Sodium 40 MG/0.4 ML SYRINGE SC SCH (09:00)
[2019-01-21] MEDS ORDERED: Diltiazem HCl 125 MG, Admixture Fee 1 EACH in Sodium Chloride 0.9% 100 ML IVPB SCH (09:30)
[2019-01-21] MEDS ORDERED: Sodium Chloride 0.9% 500 ML IV SCH (10:45)
[2019-01-21 15:06] LABS: Hemoglobin 15.4 g/dL (14.0-18.0); Platelet Count 165 thou/uL (130-400)
--- NOTE | 2019-01-21 16:14 | HP ---
CHIEF COMPLAINT: Atrial fibrillation with rapid ventricular response. HISTORY OF PRESENT ILLNESS: This patient is a 63-year-old male with a history of some type of developmental delay related to brain injury. The patient lives with his mother who is minimally verbal, but tends to understand verbal communication fairly well. He was admitted here in June when he had new onset seizure. At that time, he was found to be in atrial fibrillation with rapid ventricular response. He was started on Keppra. He had echocardiogram performed, which showed essentially normal functioning heart. He was seen in consultation by Cardiology and given the fact that the patient had a low ERNESTINA-VASc score and had rapid resolution of his atrial fibrillation, it was felt that he would just be treated with aspirin alone. The patient also had some urinary retention at that time required a Walter catheter. Subsequently, followed up with Dr. Henry as an outpatient, had some type of ablated procedure and has been doing well since then. The patient was having routine followup in [place] with Dr. Blackwell on the when he was noted to be in atrial fibrillation with rapid ventricular response. He was subsequently sent to the emergency room there, where he received IV doses of diltiazem with some improvement of rate control. He had also started a digoxin load. He was subsequently transferred to this facility. The patient currently reports that his head is "swimming" primarily through some hand motion and interpretation of his mother. She said he had not complained of that at all to her and she was surprised whenever he reported that at the visit with Dr. Blackwell's office. The patient is limited in his ability to otherwise express his current symptoms. REVIEW OF SYSTEMS: Notable for significant snoring reported by his mother with some concerns for sleep apnea. He also apparently has good urine flow now with nocturia x3. PAST MEDICAL HISTORY: 1. Noted above, the atrial fibrillation, which was brief, rapidly resolved and in the setting of a new seizure. He now has a recurrence of that. 2. History of seizure disorder, apparently had only the single seizure, none since that time, seems to be well controlled with Keppra. 3. Hyperlipidemia. 4. Developmental delay, presumably from some type of anoxic brain injury at period. PAST SURGICAL HISTORY: Rotator cuff repair and some type of ablated procedure of the prostate. FAMILY HISTORY: Reviewed, noncontributory. SOCIAL HISTORY: No alcohol, drugs, or smoking. The patient is full code and his mother is his surrogate decision maker. CURRENT MEDICATIONS: 1. Tamsulosin 0.4 mg b.i.d. 2. Dicyclomine 20 mg b.i.d. 3. Toprol-XL 12.5 mg daily. 4. Proscar 5 mg daily. 5. Zetia 10 mg at bedtime. 6. Aspirin 81 mg daily. 7. Singulair 10 mg at bedtime. 8. Keppra 500 mg b.i.d. ALLERGIES: NONE. PHYSICAL EXAMINATION: VITAL SIGNS: Currently, temperature 97.9, pulse 127, respirations 13, O2 saturation 97% on room air. BP is 134/94, down as low as 114/81. GENERAL APPEARANCE: Age-appropriate male. He is in no distress. Very pleasant and cooperative. HEENT: PERRL. No OP lesions. NECK: Supple and symmetric. HEART: Irregular rate and tachycardic. There are no murmurs. LUNGS: Clear to auscultation bilaterally with good chest wall expansion and air exchange. ABDOMEN: Soft, nontender, and nondistended. Positive bowel sounds. No masses. No organomegaly. EXTREMITIES: No cyanosis, clubbing, or edema. PSYCH: Again, the patient has normal affect and extremely pleasant. NEURO: The patient has ability to generally follow commands well, seems to have general understanding of conversation, but is not significantly verbal. LABORATORY DATA: Labs here; white count 6.9, hemoglobin 16.3, platelets 187. D-dimer less than 0.27. Sodium 141, potassium 3.9, chloride 103, CO2 is 33, BUN 25, creatinine is 1.53, glucose 88, total bilirubin 0.5, AST 14, ALT 21, CK 173. Troponin negative x3. BNP 341.9. Lipase is 43. EKG shows atrial fibrillation at 96 beats per minute. IMPRESSION AND PLAN: 1. Recurrent atrial fibrillation with rapid ventricular response. The patient previously had been treated with aspirin. At this point with recurrence, we will go ahead and give him full dose of Lovenox. He is on a Cardizem drip at 5 mg/hour. I am going to increase that to 10 given his persistent tachycardia. I have also increased his p.o. metoprolol from 12.5 to 25, and he continues with a digoxin load. Cardiology has been consulted and Dr. Blackwlel, I assume, will continue to follow here. 2. History of seizure disorder. Continue with the Keppra. 3. History of benign prostatic hyperplasia, status post ablated procedure. Continue with the Flomax. 4. Chronic kidney disease stage 3 stable, basically at his baseline. 5. History of some type of anoxic brain injury, stable. 6. Hyperlipidemia, continue with the home medications of Zetia. Job ID: [id number]
--- NOTE | 2019-01-21 16:41 | CON ---
DATE OF CONSULTATION: 01/21/2019 REASON FOR CONSULTATION: AFib with RVR. HISTORY OF PRESENT ILLNESS: Mr. Guerrier is a very pleasant 63-year-old white gentleman who comes to the hospital for AFib with RVR. He was seen in the office by myself yesterday. He was lightheaded and he was found to be in AFib with RVR, heart rate of 155. He was asked to go to the ER. He went to the ER in [place] where he could not be slowed down adequately, so he was started on diltiazem drip and transferred over here for further evaluation. On my evaluation, Mr. Guerrier continues to be in AFib, heart rate in the 100s, into the mid 90s to 110s. He denies any chest pain, tightness, or pressure. He is nonverbal, but he talks with signs and his mother is in the room. He has a history of paroxysmal AFib. This happened in the setting of having had a seizure back in June of this year. He has never had it before. He was back in sinus on that admission and he was placed on a beta sara and has not had any recurrence since. PAST MEDICAL HISTORY: 1. Hyperlipidemia. 2. Cerebral palsy with mental retardation. 3. Paroxysmal atrial fibrillation. 4. CHADS-VASc score of 0. PAST SURGICAL HISTORY: 1. Rotator cuff repair. 2. Recent cystoscopy with GreenLight laser vaporization of bladder neck contracture and of the prostate. This was by Dr. Henry on August of this year. OUTPATIENT MEDICATIONS: Include; 1. Tamsulosin 0.4 mg b.i.d. 2. Dicyclomine. 3. Toprol-XL 12.5 mg a day. 4. Proscar 5 mg a day. 5. Zetia 10 mg at bedtime. 6. Aspirin 81 a day. 7. Montelukast. 8. Keppra 500 mg b.i.d. ALLERGIES: NO KNOWN DRUG ALLERGIES. SOCIAL HISTORY: No alcohol, tobacco, or drugs. Lives with his mother who is his decision maker. She takes care of him as he is nonverbal. REVIEW OF SYSTEMS: Unobtainable as the patient is nonverbal. FAMILY HISTORY: Noncontributory. PHYSICAL EXAMINATION: VITAL SIGNS: Temperature 97.8, pulse 73 to 128, respiratory rate 12, saturating 96% on room air, blood pressure 125/80. GENERAL: Awake, alert. HEENT: Normocephalic and atraumatic. NECK: Supple. LUNGS: Clear to auscultation. CARDIOVASCULAR: S1 and S2. Irregularly irregular. Heart rate in the 90s to 120s. ABDOMEN: Soft. Positive bowel sounds. EXTREMITIES: No edema. SKIN: Warm and dry. LABORATORY DATA: Laboratory work was reviewed. CBC with a white count of 6.9, hemoglobin of 16, hematocrit 47, and platelet count of 187. Coags; D-dimer was undetectable. Chemistries with troponin are undetectable x3. BNP was 341. Creatinine was 1.5, down to 1.39. GFR of 52. Normal sodium and potassium. EKG was reviewed, AFib with RVR. ASSESSMENT: 1. Atrial fibrillation with rapid ventricular response. 2. Hyperlipidemia. PLAN: 1. He is still in Afib with [id number] rates. He was started on diltiazem drip and his blood pressure dropped and had to be discontinued. We will plan on starting full anticoagulation with Eliquis 5 mg b.i.d. We will start him on flecainide 50 mg twice a day as well. We will plan on doing a GARETH cardioversion tomorrow. Hopefully, he will be able to go home tomorrow afternoon or Friday. 2. CHADS-VASc score is 0, so long-term he may be on aspirin only for stroke prophylaxis. However, currently we will give him full anticoagulation with Eliquis, which he will need to be on for at least a month after cardioversion. 3. If these were to recur on antiarrhythmics, we will recommend having an ablation at that point. Thank you for letting me to participate in the care of your patient. We will follow. Job ID: [id number]
[2019-01-21] MEDS: Metoprolol Tartrate 25 MG TAB PO SCH (20:46)
[2019-01-21] MEDS: Ezetimibe 10 MG TAB PO SCH (20:47)
[2019-01-21] MEDS: Flecainide 50 MG TAB PO SCH (20:48)
[2019-01-21] MEDS: Montelukast Sodium 10 mg Tablet PO SCH (20:48)
[2019-01-22] MEDS: Dicyclomine 20 MG TAB PO SCH ×2 (08:47→20:38)
[2019-01-22] MEDS: Enoxaparin Sodium 100 MG/ML SYRINGE SC SCH ×2 (08:47→20:37)
[2019-01-22] MEDS: Aspirin 81 mg Enteric Coated Tablet PO SCH (08:47)
[2019-01-22] MEDS: levETIRAcetam 500 MG TAB PO SCH ×2 (08:47→20:38)
[2019-01-22] MEDS: Metoprolol Tartrate 25 MG TAB PO SCH ×2 (08:48→20:38)
[2019-01-22] MEDS: Finasteride 5 MG TAB PO SCH (08:48)
[2019-01-22] MEDS: Flecainide 50 MG TAB PO SCH (08:48)
[2019-01-22] MEDS: Tamsulosin HCl 0.4 MG CAP PO SCH ×2 (08:48→20:37)
[2019-01-22] MEDS ORDERED: Acetaminophen 325 MG TAB PO PRN (12:53)
--- NOTE | 2019-01-22 15:14 | PDOC.CPN ---
- Subjective Date: 01/22/19 Time: 15:06 Interval history: He had his GARETH and he converted to sinus during the GARETH. No cardioversion was done. - Review of Systems ROS unobtainable: due to mental status - Objective Allergies/Adverse Reactions: Allergies Allergy/AdvReac Type Severity Reaction Status Date / Time No Known Allergies Allergy Verified 08/04/18 14:11 Visit Medications: Current Medications Acetaminophen (Tylenol) 650 mg PO Q6H PRN PRN Reason: Headache/Fever or Pain Last Admin: 01/22/19 13:04 Dose: 650 mg Amiodarone HCl (Cordarone) 400 mg PO BID [facility] Aspirin (Ecotrin) 81 mg PO DAILY [facility] Last Admin: 01/22/19 08:47 Dose: 81 mg Dicyclomine HCl (Bentyl) 20 mg PO BID [facility] Last Admin: 01/22/19 08:47 Dose: 20 mg Ezetimibe (Zetia) 10 mg PO HS [facility] Last Admin: 01/21/19 20:47 Dose: 10 mg Enoxaparin Sodium (Lovenox) 100 mg SC 0900,2100 [facility] Last Admin: 01/22/19 08:47 Dose: 100 mg Finasteride (Proscar) 5 mg PO DAILY [facility] Last Admin: 01/22/19 08:48 Dose: 5 mg Sodium Chloride (Normal Saline 0.9%) 500 mls @ 100 mls/hr IV .Q5H [facility] Stop: 01/22/19 20:14 Levetiracetam (Keppra) 500 mg PO BID [facility] Last Admin: 01/22/19 08:47 Dose: 500 mg Metoprolol Tartrate (Lopressor) 12.5 mg PO BID [facility] Last Admin: 01/22/19 08:48 Dose: 12.5 mg Montelukast Sodium (Singulair) 10 mg PO HS [facility] Last Admin: 01/21/19 20:48 Dose: 10 mg Sodium Chloride (Flush - Normal Saline) 10 ml IVF Q12HR [facility] Last Admin: 01/22/19 08:48 Dose: 10 ml Sodium Chloride (Flush - Normal Saline) 10 ml IVF PRN PRN PRN Reason: Saline Flush Tamsulosin HCl (Flomax) 0.4 mg PO BID [facility] Last Admin: 01/22/19 08:48 Dose: 0.4 mg Vital Signs & Weight: Vital Signs Temp Pulse Resp BP BP Pulse Ox 01/22/19 12:43 97.1 F L 63 18 105/71 99 01/22/19 08:47 96 01/22/19 07:21 98.1 F 153 H 17 110/70 96 01/22/19 04:30 130 H 111/78 01/22/19 03:11 97.4 F L 18 94 L Admit Weight 223 lb Weight 223 lb - Quality Measures Condition: Atrial Fibrillation/Flutter (hx or current) CV meds: Beta Jay Jay: Yes, Anticoagulant: Yes - Physical Exam General: appears well, no apparent distress HEENT: mucus membranes moist Neck: supple neck Cardiac: regular rate and rhythm, no murmur Lungs: clear to auscultation Neuro: grossly intact Abdomen: active bowel sounds Skin: clear Musculoskeletal: normal range of motion - Labs Result Diagrams: 01/21/19 14:57 01/21/19 14:57 Troponin/CKMB Troponin I Less than 0.010 ng/mL (< 0.028) 01/21/19 03:02 - Telemetry Sinus rhythms and dysrhythmias: sinus rhythm Supraventricular conduction: atrial fibrillation - Assessment/Plan Assessment/Plan: 1. Afib RVR, back in sinus 2. Diarrhea, new finding today. 3. Mental retardation, non verbal. 4. Reduced EF on GARETH today at 40-45% PLAN: - Will repeat transthoracic echo as GARETH is not best way to assess LV function. - Will give small dose of IV fluids, 100 ml/hr for 50-0 ml total. - Will stop flecainiede and start amiodarone load. - Once diarrhea improves will switch lovenox to full dose Eliquis.
[2019-01-22] MEDS ORDERED: Sodium Chloride 0.9% 500 ML IV SCH (15:15)
--- NOTE | 2019-01-22 15:21 | PDOC.HOSPP ---
- Subjective Subjective: Had GARETH today and converted to NSR during the GARETH. No cardioversion required. EF was low per Dr. Blackwell. Patient had diarrhea. His mother thinks his headache is part of a viral syndrome. He denies any abdominal pain or other symptoms. - Objective Vital Signs & Weight: Vital Signs (12 hours) Temp Pulse Resp BP BP Pulse Ox 01/22/19 15:09 97.7 F 60 17 113/62 93 L 01/22/19 12:43 97.1 F L 63 18 105/71 99 01/22/19 08:47 96 01/22/19 07:21 98.1 F 153 H 17 110/70 96 01/22/19 04:30 130 H 111/78 Weight Admit Weight 223 lb Weight 223 lb I&O: 01/21/19 01/22/19 01/23/19 06:59 06:59 06:59 Intake Total 2438 Output Total 2450 Balance -12 Result Diagrams: 01/21/19 14:57 01/21/19 14:57 Hospitalist ROS - Medication Medications: Active Medications Generic Name Dose Route Start Last Admin Trade Name Freq PRN Reason Stop Dose Admin Acetaminophen 650 mg 01/22/19 12:53 01/22/19 13:04 Tylenol PO 650 mg Q6H PRN Administration Headache/Fever or Pain Aspirin 81 mg 01/21/19 09:00 01/22/19 08:47 Ecotrin PO 81 mg DAILY TING Administration Dicyclomine HCl 20 mg 01/21/19 09:00 01/22/19 08:47 Bentyl PO 20 mg BID TING Administration Ezetimibe 10 mg 01/21/19 21:00 01/21/19 20:47 Zetia PO 10 mg HS TING Administration Enoxaparin Sodium 100 mg 01/21/19 09:00 01/22/19 08:47 Lovenox SC 100 mg 0900,2100 [facility] Administration Finasteride 5 mg 01/21/19 09:00 01/22/19 08:48 Proscar PO 5 mg DAILY [facility] Administration Levetiracetam 500 mg 01/21/19 09:00 01/22/19 08:47 Keppra PO 500 mg BID TING Administration Metoprolol Tartrate 12.5 mg 01/21/19 15:59 01/22/19 08:48 Lopressor PO 12.5 mg BID TING Administration Montelukast Sodium 10 mg 01/21/19 21:00 01/21/19 20:48 Singulair PO 10 mg HS TING Administration Sodium Chloride 10 ml 01/21/19 09:00 01/22/19 08:48 Flush - Normal Saline IVF 10 ml Q12HR TNIG Administration Tamsulosin HCl 0.4 mg 01/21/19 09:00 01/22/19 08:48 Flomax PO 0.4 mg BID TING Administration - Exam General Appearance: NAD, awake alert Heart: RRR, no murmur, no gallops, no rubs, normal peripheral pulses Respiratory: CTAB, no wheezes, no rales, no ronchi, normal chest expansion, no tachypnea, normal percussion Gastrointestinal: soft, non-tender, non-distended, normal bowel sounds, no palpable masses, no hepatomegaly, no splenomegaly, no bruit Skin: normal turgor Musculoskeletal: normal tone, normal strength, no muscle wasting Psychiatric: normal affect Psychiatric - other findings: appears to have generally good understanding, but not verbal. Hosp A/P (1) Diarrhea Code(s): R19.7 - DIARRHEA, UNSPECIFIED Status: Acute (2) Headache Code(s): R51 - HEADACHE Status: Acute (3) Atrial fibrillation Code(s): I48.91 - UNSPECIFIED ATRIAL FIBRILLATION Status: Acute (4) Developmental delay, moderate Code(s): R62.50 - UNSP LACK OF EXPECTED NORMAL PHYSIOL DEV IN CHILDHOOD Status : Acute (5) Seizure Code(s): R56.9 - UNSPECIFIED CONVULSIONS Status: Acute - Plan Discussed with Dr. Blackwell. Will give some fluids today as he still feels lightheaded with standing. A fib was not the reason for that. Will be cautious with fluids given EF of 40%. Will need to repeat transthoraic echo tomorrow to see if EF improves with NSR. Dr. Blackwell will likely change him to amio. May have viral gastroenteritis.
--- NOTE | 2019-01-22 17:01 | EKG ---
Test Reason : S/P GARETH/INTERVENT'AL Blood Pressure : / mmHG Vent. Rate : 056 BPM Atrial Rate : 056 BPM P-R Int : 152 ms QRS Dur : 084 ms QT Int : 408 ms P-R-T Axes : -14 019 -31 degrees QTc Int : 393 ms Sinus bradycardia Nonspecific ST-T changes When compared with ECG of 20-JAN-2019 20:55, (Unconfirmed) Sinus rhythm has replaced Atrial fibrillation Vent. rate has decreased BY 40 BPM Nonspecific T wave abnormality no longer evident in Lateral leads QT has shortened Confirmed by DR. Bennie HUGHES ([id number]) on 01/22/2019 5:01:16 PM Referred By: JEFFREY Confirmed By:DR. Bennie HUGHES
[2019-01-22] MEDS: Ezetimibe 10 MG TAB PO SCH (20:37)
[2019-01-22] MEDS: Montelukast Sodium 10 mg Tablet PO SCH (20:38)
[2019-01-22] MEDS: Amiodarone 200 MG TAB PO SCH (20:38)
[2019-01-23] MEDS: Finasteride 5 MG TAB PO SCH (08:17)
[2019-01-23] MEDS: Metoprolol Tartrate 25 MG TAB PO SCH (08:17)
[2019-01-23] MEDS: Tamsulosin HCl 0.4 MG CAP PO SCH ×2 (08:18→21:22)
[2019-01-23] MEDS: Enoxaparin Sodium 100 MG/ML SYRINGE SC SCH (08:18)
[2019-01-23] MEDS: Amiodarone 200 MG TAB PO SCH ×2 (08:18→21:21)
[2019-01-23] MEDS: levETIRAcetam 500 MG TAB PO SCH ×2 (08:18→21:22)
[2019-01-23] MEDS: Aspirin 81 mg Enteric Coated Tablet PO SCH (08:18)
[2019-01-23] MEDS: Dicyclomine 20 MG TAB PO SCH ×2 (08:18→21:21)
[2019-01-23] MEDS ORDERED: Acetaminophen 500 MG TAB PO PRN (10:22)
--- NOTE | 2019-01-23 14:23 | PDOC.CPN ---
- Subjective Date: 01/23/19 Time: 14:00 Interval history: Developed sinus efrain to 40s while awake around 1200 today. Patient reports feeling foggy headed. Unsure if correlated to bradycardia. - Review of Systems ROS unobtainable: due to mental status General: denies: fever/chills, weight/appetite/sleep changes, night sweats, fatigue Respiratory: denies: cough, congestion, shortness of breath, exercise intolerance Cardiovascular: denies: chest pain, palpitation, edema, paroxysmal nocturnal dyspnea, orthopnea Gastrointestinal: denies: nausea, vomiting, diarrhea, constipation, abd pain, GI bleeding Musculoskeletal: denies: pain, tenderness, stiffness, swelling, arthritis/ arthralgias Neurological: denies: numbness, syncope, seizure, weakness - Objective Allergies/Adverse Reactions: Allergies Allergy/AdvReac Type Severity Reaction Status Date / Time No Known Allergies Allergy Verified 08/04/18 14:11 Visit Medications: Current Medications Acetaminophen (Tylenol) 1,000 mg PO Q6H PRN PRN Reason: Moderate to Severe Pain (6-10) Amiodarone HCl (Cordarone) 400 mg PO BID [facility] Last Admin: 01/23/19 08:18 Dose: 400 mg Apixaban (Eliquis) 5 mg PO BID [facility] Aspirin (Ecotrin) 81 mg PO DAILY [facility] Last Admin: 01/23/19 08:18 Dose: 81 mg Dicyclomine HCl (Bentyl) 20 mg PO BID [facility] Last Admin: 01/23/19 08:18 Dose: 20 mg Ezetimibe (Zetia) 10 mg PO [facility] Last Admin: 01/22/19 20:37 Dose: 10 mg Finasteride (Proscar) 5 mg PO DAILY [facility] Last Admin: 01/23/19 08:17 Dose: 5 mg Levetiracetam (Keppra) 500 mg PO BID [facility] Last Admin: 01/23/19 08:18 Dose: 500 mg Montelukast Sodium (Singulair) 10 mg PO [facility] Last Admin: 01/22/19 20:38 Dose: 10 mg Sodium Chloride (Flush - Normal Saline) 10 ml IVF Q12HR [facility] Last Admin: 01/23/19 08:18 Dose: 10 ml Sodium Chloride (Flush - Normal Saline) 10 ml IVF PRN PRN PRN Reason: Saline Flush Tamsulosin HCl (Flomax) 0.4 mg PO BID [facility] Last Admin: 01/23/19 08:18 Dose: 0.4 mg Vital Signs & Weight: Vital Signs Temp Pulse Resp BP Pulse Ox 01/23/19 12:00 97.6 F 52 L 18 110/64 96 01/23/19 08:00 98 01/23/19 07:52 98.7 F 57 L 18 123/67 01/23/19 04:00 97.6 F 55 L 16 106/63 94 L Admit Weight 223 lb Weight 223 lb - Quality Measures Condition: Atrial Fibrillation/Flutter (hx or current) CV meds: Beta Jay Jay: Yes, Anticoagulant: Yes - Physical Exam General: appears well, no apparent distress HEENT: mucus membranes moist Neck: supple neck Cardiac: regular rhythm, bradycardia Lungs: clear to auscultation, normal breath sounds Neuro: grossly intact Abdomen: unremarkable, soft, non-tender Skin: clear - Labs Result Diagrams: 01/21/19 14:57 01/21/19 14:57 Troponin/CKMB Troponin I Less than 0.010 ng/mL (< 0.028) 01/21/19 03:02 - Assessment/Plan Assessment/Plan: 1. Afib RVR, back in sinus 2. Mental retardation, non verbal. 4. Reduced EF on GARETH today at 40-45% Stop Toprol. Continue Amio. Repeat ECHO. On Eliquis. RG Agree with the above Hold toprol Needs OP sleep study; mother states he is a loud snorer and likely contributes to FRANCOISE
--- NOTE | 2019-01-23 15:27 | EKG ---
Test Reason : Blood Pressure : / mmHG Vent. Rate : 096 BPM Atrial Rate : 416 BPM P-R Int : 000 ms QRS Dur : 082 ms QT Int : 372 ms P-R-T Axes : 000 032 -39 degrees QTc Int : 469 ms Atrial fibrillation Nonspecific T wave abnormality , probably digitalis effect Prolonged QT Abnormal ECG Confirmed by ABRAHAN SWANN, TRAN ([id number]), scientific publications editor LAN YANES ([id number]) on 01/23/2019 3:27:20 PM Referred By: Confirmed By:TRAN GAUTHIER MD
--- NOTE | 2019-01-23 16:42 | ECHO ---
DATE OF SERVICE: 01/22/19 PREPROCEDURE DIAGNOSIS: Atrial fibrillation with RVR. POSTPROCEDURE DIAGNOSIS: Sinus rhythm, LV dysfunction. The patient is a 63-year-old white gentleman who come to the hospital for atrial fibrillation with RV R. Plan was to do a GARETH cardioversion. The Anesthesiology department provided with sedation for the patient. Please see their notes for det ails. After adequate sedation was achieved, transesophageal probe was inserted into the mouth and into the esophagus. Multiplanar views were obtained. Left ventricle is normal size, normal wall thickness. Systolic function seems to be reduced. EF at a bout 40-45%. Patient was in rapid atrial fibrillation in the 150s at the beginning of the test and LV function was about 20%; however, he converted on his own in the middle of the procedure and he was i n sinus bradycardia in the mid 50s and his heart function EF at that time was about 40-45%. Left atrium is mildly dilated. Left atrial appendage is a small appendage with normal flow velocities and no masses or thrombus. Right atrium is normal sized. The right ventricle is normal size with normal systolic function. Aortic valve is structurally normal with three cusps, no stenosis or regurgitation. Mitral valve is structurally normal. No stenosis. There is moderate MR. Tricuspid valve is structurally normal. There is mild TR. No stenosis. Pulmonary valve is structurally normal. There is mild PI. No stenosis. Thoracic aorta has grade II/V atherosclerotic disease. CONCLUSIONS: 1. LV systolic function at 40-45, while back in sinus rhythm. Lower while in A-fib. 2. Left atrial enlargement. 3. Left atrial appendage with normal velocities and no masses or thrombus. 4. Moderate MR. 5. Mild TR. 6. Mild PI. 7. Patient converted to sinus rhythm during the transesophageal echo and cardioversion was not neede d.
--- NOTE | 2019-01-23 19:10 | PDOC.HOSPP ---
- Subjective Encounter Date: 01/23/19 Encounter Time: 09:15 Subjective: f/u for A-fib RVR now SR on Amiodarone/Toprol. Feels some dizziness when upright. No fever or chills. - Objective Vital Signs & Weight: Vital Signs (12 hours) Temp Pulse Resp BP Pulse Ox 01/23/19 16:00 97.9 F 52 L 18 115/59 L 96 01/23/19 12:00 97.6 F 52 L 18 110/64 96 01/23/19 08:00 98 01/23/19 07:52 98.7 F 57 L 18 123/67 Weight Admit Weight 223 lb Weight 223 lb I&O: 01/22/19 01/23/19 01/24/19 06:59 06:59 06:59 Intake Total 2438 2030 2260 Output Total 2450 800 1680 Balance -12 1230 580 Result Diagrams: 01/21/19 14:57 01/21/19 14:57 Additional Labs: Laboratory Tests 01/20/19 01/20/19 21:14 21:14 Creatinine 1.53 H B-Natriuretic Peptide 341.9 H EKG Reviewed by me: Yes (Tele - SR, occasional bradycardia) Hospitalist ROS - Medication Medications: Active Medications Generic Name Dose Route Start Last Admin Trade Name Freq PRN Reason Stop Dose Admin Amiodarone HCl 400 mg 01/22/19 21:00 01/23/19 08:18 Cordarone PO 400 mg BID [facility] Administration Aspirin 81 mg 01/21/19 09:00 01/23/19 08:18 Ecotrin PO 81 mg DAILY [facility] Administration Dicyclomine HCl 20 mg 01/21/19 09:00 01/23/19 08:18 Bentyl PO 20 mg BID [facility] Administration Ezetimibe 10 mg 01/21/19 21:00 01/22/19 20:37 Zetia PO 10 mg HS [facility] Administration Finasteride 5 mg 01/21/19 09:00 01/23/19 08:17 Proscar PO 5 mg DAILY [facility] Administration Levetiracetam 500 mg 01/21/19 09:00 01/23/19 08:18 Keppra PO 500 mg BID [facility] Administration Montelukast Sodium 10 mg 01/21/19 21:00 01/22/19 20:38 Singulair PO 10 mg HS [facility] Administration Sodium Chloride 10 ml 01/21/19 09:00 01/23/19 08:18 Flush - Normal Saline IVF 10 ml Q12HR [facility] Administration Tamsulosin HCl 0.4 mg 01/21/19 09:00 01/23/19 08:18 Flomax PO 0.4 mg BID [facility] Administration - Exam General Appearance: NAD, awake alert General - other findings: non-verbal Eye: PERRL, anicteric sclera ENT: normocephalic atraumatic, no oropharyngeal lesions Neck: supple, symmetric, no JVD, no thyromegaly, no lymphadenopathy Heart: RRR, no murmur, no gallops, no rubs, normal peripheral pulses Respiratory: CTAB, no wheezes, no rales, no ronchi, normal chest expansion Gastrointestinal: soft, non-tender, non-distended, normal bowel sounds, no palpable masses Extremities: no cyanosis, no clubbing, no edema Skin: normal turgor, no lesions Neurological: cranial nerve grossly intact, no new deficit Neurological - other findings: aphasic Musculoskeletal: normal tone Hosp A/P (1) Atrial fibrillation Code(s): I48.91 - UNSPECIFIED ATRIAL FIBRILLATION Status: Acute Plan: Converted to SR, continue medical mgmt, Eliquis 5mg BID, Amiodarone 400mg BID (2) Seizure Code(s): R56.9 - UNSPECIFIED CONVULSIONS Status: Chronic Plan: Continue Keppra (3) Cardiomyopathy Code(s): I42.9 - CARDIOMYOPATHY, UNSPECIFIED Status: Acute Plan: EF 40-45%, continue med mgmt (4) Headache Code(s): R51 - HEADACHE Status: Acute Plan: Supportive mgmt, ? correlation with Amiodarone (5) Developmental delay, moderate Code(s): R62.50 - UNSP LACK OF EXPECTED NORMAL PHYSIOL DEV IN CHILDHOOD Status : Chronic - Plan plan discussed w/ family, PT/OT, social worker health services, out of bed/ambulate, DVT proph w/SCDs Stable currently Repeat 2D echo pending Continue Amiodarone OOB/ambulate Start Eliquis 5mg BID Likely home in 24h
[2019-01-23] MEDS: Apixaban 5 MG TAB PO SCH (21:22)
[2019-01-23] MEDS: Montelukast Sodium 10 mg Tablet PO SCH (21:22)
[2019-01-23] MEDS: Ezetimibe 10 MG TAB PO SCH (21:22)
[2019-01-24] MEDS: levETIRAcetam 500 MG TAB PO SCH ×2 (08:15→21:01)
[2019-01-24] MEDS: Amiodarone 200 MG TAB PO SCH ×2 (08:15→21:01)
[2019-01-24] MEDS: Finasteride 5 MG TAB PO SCH (08:16)
[2019-01-24] MEDS: Aspirin 81 mg Enteric Coated Tablet PO SCH (08:16)
[2019-01-24] MEDS: Apixaban 5 MG TAB PO SCH ×2 (08:16→21:00)
[2019-01-24] MEDS: Dicyclomine 20 MG TAB PO SCH ×2 (08:16→21:01)
[2019-01-24] MEDS: Tamsulosin HCl 0.4 MG CAP PO SCH ×2 (08:16→21:00)
--- NOTE | 2019-01-24 12:01 | PDOC.CPN ---
- Subjective Date: 01/24/19 Time: 11:59 Interval history: No complaints. Mom says he still says he's dizzy. it's constant and unrelated to pulse rate - Review of Systems General: denies: fever/chills, weight/appetite/sleep changes, night sweats, fatigue Respiratory: denies: cough, congestion, shortness of breath, exercise intolerance Cardiovascular: denies: chest pain, palpitation, edema, paroxysmal nocturnal dyspnea, orthopnea Gastrointestinal: denies: nausea, vomiting, diarrhea, constipation, abd pain, GI bleeding Musculoskeletal: denies: pain, tenderness, stiffness, swelling, arthritis/ arthralgias Neurological: denies: numbness, syncope, seizure, weakness - Objective Allergies/Adverse Reactions: Allergies Allergy/AdvReac Type Severity Reaction Status Date / Time No Known Allergies Allergy Verified 08/04/18 14:11 Visit Medications: Current Medications Acetaminophen (Tylenol) 1,000 mg PO Q6H PRN PRN Reason: Moderate to Severe Pain (6-10) Amiodarone HCl (Cordarone) 200 mg PO BID [facility] Apixaban (Eliquis) 5 mg PO BID [facility] Last Admin: 01/24/19 08:16 Dose: 5 mg Aspirin (Ecotrin) 81 mg PO DAILY [facility] Last Admin: 01/24/19 08:16 Dose: 81 mg Dicyclomine HCl (Bentyl) 20 mg PO BID [facility] Last Admin: 01/24/19 08:16 Dose: 20 mg Ezetimibe (Zetia) 10 mg PO HS [facility] Last Admin: 01/23/19 21:22 Dose: 10 mg Finasteride (Proscar) 5 mg PO DAILY [facility] Last Admin: 01/24/19 08:16 Dose: 5 mg Levetiracetam (Keppra) 500 mg PO BID [facility] Last Admin: 01/24/19 08:15 Dose: 500 mg Montelukast Sodium (Singulair) 10 mg PO HS [facility] Last Admin: 01/23/19 21:22 Dose: 10 mg Sodium Chloride (Flush - Normal Saline) 10 ml IVF Q12HR [facility] Last Admin: 01/24/19 08:16 Dose: 10 ml Sodium Chloride (Flush - Normal Saline) 10 ml IVF PRN PRN PRN Reason: Saline Flush Tamsulosin HCl (Flomax) 0.4 mg PO BID [facility] Last Admin: 01/24/19 08:16 Dose: 0.4 mg Vital Signs & Weight: Vital Signs Temp Pulse Resp BP Pulse Ox 01/24/19 11:25 97.6 F 45 L 16 107/56 L 98 01/24/19 08:16 100 01/24/19 07:44 97.6 F 68 16 112/52 L 100 01/24/19 03:38 98.2 F 51 L 18 109/53 L 97 Admit Weight 223 lb Weight 223 lb - Quality Measures Condition: Atrial Fibrillation/Flutter (hx or current) CV meds: Beta Jay Jay: Yes, Anticoagulant: Yes - Physical Exam HEENT: mucus membranes moist Neck: supple neck Cardiac: regular rate and rhythm, regular rate Lungs: clear to auscultation, normal breath sounds Neuro: grossly intact Abdomen: unremarkable, soft, non-tender Skin: clear - Labs Result Diagrams: 01/21/19 14:57 01/21/19 14:57 Troponin/CKMB Troponin I Less than 0.010 ng/mL (< 0.028) 01/21/19 03:02 - Assessment/Plan Assessment/Plan: 1. Afib RVR, back in sinus 2. Mental retardation, non verbal. 4. Reduced EF on GARETH today at 40-45% Intermittent efrain, but unable to correlate true symptoms. Might be orthostatic. Decrease Amio to 200mg BID x 2 weeks and the 200mg daily. EVR as outpatient. Can arrange. Mother says she would like to go home. Consider decreased flomax dosage.
--- NOTE | 2019-01-24 16:09 | DIS ---
DATE OF ADMISSION: 01/20/2019 DATE OF DISCHARGE: 01/24/2019 DISCHARGE DIAGNOSES: 1. Paroxysmal atrial fibrillation, converting to sinus mechanism. 2. Seizure disorder, chronic and stable. 3. Cardiomyopathy with mild reduction in left ventricular ejection fraction at 40% to 45%. 4. Chronic kidney disease, stage 3, stable. 5. Developmental delay, chronic. CONSULTATIONS: Dr. Blackwell with Cardiology Service. PERTINENT LABORATORY AND X-RAY FINDINGS: Creatinine ranged between 1.39 to 1.53. Estimated GFR ranged between 46 to 52. BNP 342. Troponin I negative x3. CBC showed hemoglobin ranging between 15.4 to 16.3. Transesophageal echocardiogram dated 01/22/2019, showed ejection fraction at 40% to 45%. Mild left atrial enlargement. No left atrial appendage thrombus. Moderate mitral regurgitation noted. The patient converting to sinus rhythm during the transesophageal echocardiogram negating need for cardioversion. HOSPITAL COURSE: The patient was initially admitted to the telemetry unit after presenting with atrial fibrillation with rapid ventricular response. The patient was evaluated in the emergency room and noted with atrial fibrillation with rapid ventricular response, receiving IV diltiazem for rate control. The patient also received digoxin intravenously. The patient was evaluated by the Cardiology Service, undergoing a transesophageal echocardiogram in preparation for cardioversion, however, spontaneously converted to sinus rhythm during the transesophageal echocardiogram procedure. The patient was noted with mildly reduced ejection fraction at 40% to 45%, likely due to the atrial fibrillation episode. The patient was initiated on flecainide or initially in addition to anticoagulation with Lovenox. Due to bradycardia, the patient was transitioned to amiodarone and Eliquis for anticoagulation. The patient was noted with sinus bradycardia and mild hypotension with reduction in the amiodarone dose to 200 mg b.i.d. The patient was also decreased on Flomax to 0.4 mg daily. The patient overall remained clinically stable with adjustments to his cardiac medications. The patient tolerating regular oral intake and ambulating without assistance or difficulty. I have examined the patient at the time of discharge and discussed followup instructions. The patient clinically stable and ready for discharge on 01/24/2019. DISCHARGE MEDICATIONS: 1. Amiodarone 200 mg p.o. b.i.d. x2 weeks followed by 200 mg p.o. daily. 2. Eliquis 5 mg p.o. b.i.d. 3. Enteric-coated aspirin 81 mg p.o. daily. 4. Proscar 5 mg p.o. daily. 5. Flomax 0.4 mg p.o. daily x2 weeks and re-evaluate. 6. Singulair 10 mg p.o. at bedtime. 7. Keppra 500 mg p.o. b.i.d. 8. Zetia 10 mg p.o. at bedtime. 9. Dicyclomine 20 mg p.o. b.i.d. FOLLOWUP: The patient may follow up with his primary care provider, Dr. Tyler Coelho within 7 days of discharge. The patient will follow up with Dr. Blackwell with [facility] within 3 weeks of discharge. CONDITION ON DISCHARGE: Stable. ACTIVITY: Ad-maria victoria. DIET: Heart healthy. CODE STATUS: Full. DISPOSITION: Home on 01/24/2019. TIME SPENT: Total time preparing and coordinating discharge is 38 minutes. Job ID: [id number]
[2019-01-24] MEDS: Diltiazem HCl 125 MG, Admixture Fee 1 EACH in Sodium Chloride 0.9% 100 ML IVPB SCH (17:18)
[2019-01-24] MEDS: Montelukast Sodium 10 mg Tablet PO SCH (21:00)
[2019-01-24] MEDS: Ezetimibe 10 MG TAB PO SCH (21:00)
--- NOTE | 2019-01-24 21:07 | PDOC.HOSPP ---
- Subjective Encounter Date: 01/24/19 Encounter Time: 10:00 Subjective: f/u for atrial fibrillation RVR on Amiodarone and Eliquis. Feels ok overall and anxious to go home per family report. - Objective Vital Signs & Weight: Vital Signs (12 hours) Temp Pulse Resp BP Pulse Ox 01/24/19 16:38 98.6 F 160 H 21 H 127/64 98 01/24/19 11:25 97.6 F 45 L 16 107/56 L 98 Weight Admit Weight 223 lb Weight 223 lb I&O: 01/23/19 01/24/19 01/25/19 06:59 06:59 06:59 Intake Total 2030 2560 1080 Output Total 800 1880 Balance 6226 125 6495 Result Diagrams: 01/21/19 14:57 01/21/19 14:57 Additional Labs: Laboratory Tests 01/20/19 01/20/19 21:14 21:14 Creatinine 1.53 H B-Natriuretic Peptide 341.9 H Radiology Reviewed by me: Yes (2D Echo - EF 55-60%) EKG Reviewed by me: Yes (Tele - A-fib RVR in 160's) Hospitalist ROS - Medication Medications: Active Medications Generic Name Dose Route Start Last Admin Trade Name Freq PRN Reason Stop Dose Admin Amiodarone HCl 200 mg 01/24/19 21:00 01/24/19 21:01 Cordarone PO 200 mg BID [facility] Administration Apixaban 5 mg 01/23/19 21:00 01/24/19 21:00 Eliquis PO 5 mg BID [facility] Administration Aspirin 81 mg 01/21/19 09:00 01/24/19 08:16 Ecotrin PO 81 mg DAILY [facility] Administration Dicyclomine HCl 20 mg 01/21/19 09:00 01/24/19 21:01 Bentyl PO 20 mg BID [facility] Administration Ezetimibe 10 mg 01/21/19 21:00 01/24/19 21:00 Zetia PO 10 mg HS [facility] Administration Finasteride 5 mg 01/21/19 09:00 01/24/19 08:16 Proscar PO 5 mg DAILY [facility] Administration Diltiazem HCl 125 mg/ 125 mls @ 5 mls/hr 01/24/19 16:45 01/24/19 17:18 Miscellaneous Medication 1 IVPB 125 mls each/ Sodium Chloride INF TING Administration Protocol Levetiracetam 500 mg 01/21/19 09:00 01/24/19 21:01 Keppra PO 500 mg BID [facility] Administration Montelukast Sodium 10 mg 01/21/19 21:00 01/24/19 21:00 Singulair PO 10 mg HS [facility] Administration Sodium Chloride 10 ml 01/21/19 09:00 01/24/19 08:16 Flush - Normal Saline IVF 10 ml Q12HR [facility] Administration Tamsulosin HCl 0.4 mg 01/21/19 09:00 01/24/19 21:00 Flomax PO 0.4 mg BID [facility] Administration - Exam General Appearance: NAD, awake alert Eye: PERRL, anicteric sclera ENT: normocephalic atraumatic, no oropharyngeal lesions Neck: supple, symmetric, no JVD, no thyromegaly, no lymphadenopathy Heart: no rubs, normal peripheral pulses, irregular Respiratory: CTAB, no wheezes, no rales, no ronchi, normal chest expansion Gastrointestinal: soft, non-tender, non-distended, normal bowel sounds, no palpable masses Extremities: no cyanosis, no clubbing, no edema Skin: normal turgor, no lesions Neurological: no new deficit Musculoskeletal: normal tone, normal strength Hosp A/P (1) Atrial fibrillation Code(s): I48.91 - UNSPECIFIED ATRIAL FIBRILLATION Status: Acute Plan: RVR noted on telemetry, Cardizem 10mg IV bolus then 10mg/h, continue Amiodarone 200mg BID, Eliquis 5mg BID, consider Cardioversion (2) Seizure Code(s): R56.9 - UNSPECIFIED CONVULSIONS Status: Chronic Plan: Stable, continue Keppra (3) Cardiomyopathy Code(s): I42.9 - CARDIOMYOPATHY, UNSPECIFIED Status: Acute Plan: Improved with initial taoist of NSR, EF 55-60% (4) Headache Code(s): R51 - HEADACHE Status: Acute (5) Developmental delay, moderate Code(s): R62.50 - UNSP LACK OF EXPECTED NORMAL PHYSIOL DEV IN CHILDHOOD Status : Chronic - Plan plan discussed w/ family, PT/OT, social media marketer, out of bed/ambulate, DVT proph w/SCDs Recurrent A-fib RVR Start Cardizem 10mg IVP x 1 then 10mg/h Continue Amiodarone 200mg BID OOB/ambulate Continue Eliquis 5mg BID Cardiology for consideration of cardioversion Hold d/c
[2019-01-25] MEDS: Apixaban 5 MG TAB PO SCH ×2 (09:06→20:26)
[2019-01-25] MEDS: Finasteride 5 MG TAB PO SCH (09:06)
[2019-01-25] MEDS: levETIRAcetam 500 MG TAB PO SCH ×2 (09:06→20:25)
[2019-01-25] MEDS: Dicyclomine 20 MG TAB PO SCH ×2 (09:06→20:26)
[2019-01-25] MEDS: Amiodarone 200 MG TAB PO SCH ×2 (09:07→20:26)
[2019-01-25] MEDS: Tamsulosin HCl 0.4 MG CAP PO SCH ×2 (09:07→20:25)
[2019-01-25] MEDS: Aspirin 81 mg Enteric Coated Tablet PO SCH (09:12)
[2019-01-25] MEDS ORDERED: Digoxin 0.5 MG/2 ML AMP SLOW IVP SCH ×2 (11:45→17:00)
--- NOTE | 2019-01-25 16:25 | CON ---
DATE OF CONSULTATION: 01/25/2019 HISTORY OF PRESENT ILLNESS: I am seeing Mr. Guerrier at our [facility] as an electrophysiology budget consultant. His problems are: 1. Paroxysmal atrial fibrillation. a. Admission with rapid ventricular rates and subsequent spontaneous conversion during GARETH. b. Recurrent atrial fibrillation, now on amiodarone. 2. Cardiomyopathy, likely rate-related cardiomyopathy. a. Reduced LVEF on GARETH on 01/22/2019 at 40% to 45%. b. Followup 2D echo on 01/24/2019 shows normal LVEF of 55% to 60% while in normal rhythm. 3. History of mental retardation and cerebral palsy noted with aphasia. 4. History of hyperlipidemia. ALLERGIES: NONE NOTED. MEDICATIONS AT HOME: Included; 1. Tamsulosin. 2. Dicyclomine. 3. Toprol-XL. 4. Proscar. 5. Zetia. 6. Aspirin. 7. Montelukast. 8. Keppra. SUBJECTIVE: Mr. Guerrier was admitted with atrial fibrillation with rapid rates. This is not his 1st occurrence. Back in June, he had a similar episode. He has some dizzy spells. Apart from that, his symptoms are difficult to elicit, hence his mental retardation and aphasia. He did require diltiazem and IV digoxin for rate control initially. Now, he is on p.o. amiodarone and IV diltiazem too over the weekend. At this point, his heart rate has improved. Denies stroke-like symptoms. No neurological deficits. No fever, chills, or cough. Rest of 12-point review of systems otherwise unremarkable. PAST MEDICAL HISTORY: As above. He has a history of significant snoring and concern for sleep apnea. SOCIAL HISTORY: Denies smoking, EtOH, or drug abuse. His mother is his surrogate decision maker, who was in the room with his exam. FAMILY HISTORY: Not contributory. OBJECTIVE DATA: VITAL SIGNS: Blood pressure is 110/64, heart rate 120 and sinus, respiratory rate 16, and temperature 98 degrees Fahrenheit. GENERAL: He is an alert and apparently oriented man, in no apparent distress, but with aphasia. NECK: Supple. Jugular veins are not distended. CHEST: Coarse without crackles. HEART: Sounds are irregularly irregular. S1 is variable. No murmur or gallop. ABDOMEN: Benign. Bowel sounds positive. EXTREMITIES: Lower extremities without edema, clubbing, or cyanosis. DATABASE: EKG is reviewed. Initial EKG reveals coarse atrial fibrillation, rate of 96 beats per minute. Subsequent EKGs are similar, although there are episodes of sinus rhythm noted on the and recurrence of atrial fibrillation again seen by the . LABORATORY DATA: White cell count 6.9, hemoglobin is 16.3, and platelet count is 187. Sodium 141, potassium 3.9, BUN is 25, and creatinine 1.53. AST and ALT are normal at 14 and 21. BNP is 341. Troponin-I 0.01 x3 on admission. ASSESSMENT AND PLAN: Mr. Guerrier is a pleasant 63-year-old man with history of mental retardation, was admitted with atrial fibrillation with rapid rates. He had prior episodes, previously suppressed with flecainide, but due to the recurrence and they found reduced LVEF on GARETH, Dr. Blackwell changed his antiarrhythmic regimens from flecainide to amiodarone. He is on amiodarone loading and had mild bradycardia, currently receiving 200 mg twice a day dose. I have discussed with the patient and his mother the mechanism of atrial fibrillation and potential treatment options. I agree with the benefit from suppressing atrial fibrillation with amiodarone, which is likely the most effective, especially in view of his cardiomyopathy. This is a reasonable short-term plan. Long-term on the other hand, he could benefit from consideration for pulmonary venous isolation, especially after adequate anticoagulation was achieved for at least 3-4 weeks. I did discuss the procedure of pulmonary venous isolation with the mother and her son and they are interested in this as well. We will plan for discussion of this in 3 weeks. PLAN: 1. Agree with continued amiodarone. Continue loading and then taper. 2. Continue this initiated Eliquis 5 mg twice a day. 3. Monitor for bradycardia. 4. Cardioversion possibly tomorrow as discussed with Dr. Blackwell. 5. Three weeks followup and likely plan for pulmonary venous isolation procedure after that. Job ID: [id number]
--- NOTE | 2019-01-25 17:44 | PDOC.CPN ---
- Subjective Date: 01/25/19 Time: 17:42 Interval history: He went back into afib RVR. HR in the 150's. No other issues. Diarrhea is improved. - Review of Systems ROS unobtainable: due to mental status - Objective Allergies/Adverse Reactions: Allergies Allergy/AdvReac Type Severity Reaction Status Date / Time No Known Allergies Allergy Verified 08/04/18 14:11 Visit Medications: Current Medications Acetaminophen (Tylenol) 1,000 mg PO Q6H PRN PRN Reason: Moderate to Severe Pain (6-10) Amiodarone HCl (Cordarone) 200 mg PO BID [facility] Last Admin: 01/25/19 09:07 Dose: 200 mg Apixaban (Eliquis) 5 mg PO BID [facility] Last Admin: 01/25/19 09:06 Dose: 5 mg Aspirin (Ecotrin) 81 mg PO DAILY [facility] Last Admin: 01/25/19 09:12 Dose: 81 mg Dicyclomine HCl (Bentyl) 20 mg PO BID [facility] Last Admin: 01/25/19 09:06 Dose: 20 mg Digoxin (Lanoxin) 0.25 mg SLOW IVP NOW [facility] Stop: 01/25/19 19:00 Last Admin: 01/25/19 16:58 Dose: 0.25 mg Ezetimibe (Zetia) 10 mg PO HS [facility] Last Admin: 01/24/19 21:00 Dose: 10 mg Finasteride (Proscar) 5 mg PO DAILY [facility] Last Admin: 01/25/19 09:06 Dose: 5 mg Diltiazem HCl 125 mg/Miscellaneous Medication 1 each/ Sodium Chloride 125 mls @ 5 mls/hr IVPB INF [facility]; Protocol Last Admin: 01/24/19 17:18 Dose: 125 mls Levetiracetam (Keppra) 500 mg PO BID [facility] Last Admin: 01/25/19 09:06 Dose: 500 mg Montelukast Sodium (Singulair) 10 mg PO HS [facility] Last Admin: 01/24/19 21:00 Dose: 10 mg Sodium Chloride (Flush - Normal Saline) 10 ml IVF Q12HR [facility] Last Admin: 01/25/19 09:07 Dose: 10 ml Sodium Chloride (Flush - Normal Saline) 10 ml IVF PRN PRN PRN Reason: Saline Flush Tamsulosin HCl (Flomax) 0.4 mg PO BID [facility] Last Admin: 01/25/19 09:07 Dose: 0.4 mg Vital Signs & Weight: Vital Signs Temp Pulse Resp BP Pulse Ox 01/25/19 16:58 122 H 01/25/19 15:26 98.8 F 122 H 15 113/59 L 94 L 01/25/19 12:16 127 H 110/64 01/25/19 12:07 98.0 F 16 131/62 103 H 01/25/19 09:06 97 01/25/19 07:28 97.9 F 138 H 16 97/65 97 Admit Weight 223 lb Weight 223 lb - Quality Measures Condition: Atrial Fibrillation/Flutter (hx or current) CV meds: Beta Jay Jay: Yes, Anticoagulant: Yes - Physical Exam General: no apparent distress HEENT: mucus membranes moist Neck: supple neck Cardiac: no murmur, irregularly regular Lungs: clear to auscultation, normal breath sounds Neuro: grossly intact Abdomen: active bowel sounds, soft, non-tender Skin: clear Musculoskeletal: normal range of motion, no pain - Labs Result Diagrams: 01/21/19 14:57 01/21/19 14:57 Troponin/CKMB Troponin I Less than 0.010 ng/mL (< 0.028) 01/21/19 03:02 - Telemetry Supraventricular conduction: atrial fibrillation - Assessment/Plan Assessment/Plan: 1. Afib RVR. 2. Mental retardation, non verbal. 4. Reduced EF on GARETH today at 40-45% PLAN: - Continue amiodarone load. - Continue full anticoagulation. - If remains in afib RVR will plan on repeat cardioversion. 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 - Appreciate EP recs.
[2019-01-25] MEDS: Diltiazem HCl 125 MG, Admixture Fee 1 EACH in Sodium Chloride 0.9% 100 ML IVPB SCH (17:55)
--- NOTE | 2019-01-25 18:49 | PDOC.HOSPP ---
- Subjective Encounter Date: 01/25/19 Encounter Time: 14:00 Subjective: f/u for A-fib RVR on Cardizem gtt, Amiodarone with HR's in 120's. Plan for CV in 24h. - Objective Vital Signs & Weight: Vital Signs (12 hours) Temp Pulse Resp BP Pulse Ox 01/25/19 16:58 122 H 01/25/19 15:26 98.8 F 122 H 15 113/59 L 94 L 01/25/19 12:16 127 H 110/64 01/25/19 12:07 98.0 F 16 131/62 103 H 01/25/19 09:06 97 01/25/19 07:28 97.9 F 138 H 16 97/65 97 Weight Admit Weight 223 lb Weight 223 lb I&O: 01/24/19 01/25/19 01/26/19 06:59 06:59 06:59 Intake Total 2560 1440 Output Total 1880 400 Balance 680 1040 Result Diagrams: 01/21/19 14:57 01/21/19 14:57 Additional Labs: Laboratory Tests 01/20/19 01/20/19 21:14 21:14 Creatinine 1.53 H B-Natriuretic Peptide 341.9 H Radiology Reviewed by me: Yes (Echo - EF 55-60%) EKG Reviewed by me: Yes (Tele - A-fib RVR in 120-30's) Hospitalist ROS - Medication Medications: Active Medications Generic Name Dose Route Start Last Admin Trade Name Freq PRN Reason Stop Dose Admin Amiodarone HCl 200 mg 01/24/19 21:00 01/25/19 09:07 Cordarone PO 200 mg BID TING Administration Apixaban 5 mg 01/23/19 21:00 01/25/19 09:06 Eliquis PO 5 mg BID TING Administration Aspirin 81 mg 01/21/19 09:00 01/25/19 09:12 Ecotrin PO 81 mg DAILY TING Administration Dicyclomine HCl 20 mg 01/21/19 09:00 01/25/19 09:06 Bentyl PO 20 mg BID TING Administration Digoxin 0.25 mg 01/25/19 17:00 01/25/19 16:58 Lanoxin SLOW IVP 01/25/19 19:00 0.25 mg NOW TING Administration Ezetimibe 10 mg 01/21/19 21:00 01/24/19 21:00 Zetia PO 10 mg HS TING Administration Finasteride 5 mg 01/21/19 09:00 01/25/19 09:06 Proscar PO 5 mg DAILY T[facility] Administration Diltiazem HCl 125 mg/ 125 mls @ 5 mls/hr 01/24/19 16:45 01/25/19 17:55 Miscellaneous Medication 1 IVPB 125 mls each/ Sodium Chloride INF T[facility] Administration Protocol Levetiracetam 500 mg 01/21/19 09:00 01/25/19 09:06 Keppra PO 500 mg BID [facility]ING Administration Montelukast Sodium 10 mg 01/21/19 21:00 01/24/19 21:00 Singulair PO 10 mg HS TING Administration Sodium Chloride 10 ml 01/21/19 09:00 01/25/19 09:07 Flush - Normal Saline IVF 10 ml Q12HR TING Administration Tamsulosin HCl 0.4 mg 01/21/19 09:00 01/25/19 09:07 Flomax PO 0.4 mg BID TING Administration - Exam General Appearance: NAD, awake alert Eye: PERRL, anicteric sclera ENT: normocephalic atraumatic, no oropharyngeal lesions Neck: supple, symmetric, no JVD, no thyromegaly, no lymphadenopathy, no carotid bruit Heart: no murmur, no gallops, no rubs, normal peripheral pulses, irregular Respiratory: CTAB, no wheezes, no rales, no ronchi, normal chest expansion, no tachypnea Gastrointestinal: soft, non-tender, non-distended, normal bowel sounds, no palpable masses Extremities: no cyanosis, no clubbing, no edema Skin: normal turgor Neurological: cranial nerve grossly intact, no new deficit Neurological - other findings: chronic aphasia Musculoskeletal: normal tone, normal strength Hosp A/P (1) Atrial fibrillation Code(s): I48.91 - UNSPECIFIED ATRIAL FIBRILLATION Status: Acute Plan: RVR noted on telemetry, Digoxin 0.25mg IV x 1 then repeat if RVR persists, continue Cardizem gtt and Amiodarone, likely will need CV (2) Seizure Code(s): R56.9 - UNSPECIFIED CONVULSIONS Status: Chronic Plan: Stable, continue Keppra (3) Cardiomyopathy Code(s): I42.9 - CARDIOMYOPATHY, UNSPECIFIED Status: Acute Plan: Likely due to A-fib RVR, continue tx as outlined above (4) Headache Code(s): R51 - HEADACHE Status: Acute (5) Developmental delay, moderate Code(s): R62.50 - UNSP LACK OF EXPECTED NORMAL PHYSIOL DEV IN CHILDHOOD Status : Chronic - Plan plan discussed w/ family, 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
[2019-01-25] MEDS: Montelukast Sodium 10 mg Tablet PO SCH (20:25)
[2019-01-25] MEDS: Ezetimibe 10 MG TAB PO SCH (20:26)
[2019-01-26 08:46] LABS: Anion Gap 11 mmol/L (10-20); BUN (Urea Nitrogen) 24 mg/dL (8.4-25.7); Calc. Creatinine Clearance 79 mL/min (70-130); Calcium 9.2 mg/dL (7.8-10.44); Carbon Dioxide 25 mmol/L (23-31); Chloride 108 mmol/L (98-107); Estimated GFR-MDRD 52; Glucose 94 mg/dL (80-115); Potassium 4.2 mmol/L (3.5-5.1); Sodium 140 mmol/L (136-145)
[2019-01-26] MEDS: Amiodarone 200 MG TAB PO SCH (08:49)
[2019-01-26] MEDS: Tamsulosin HCl 0.4 MG CAP PO SCH (08:49)
[2019-01-26] MEDS: Dicyclomine 20 MG TAB PO SCH (08:49)
[2019-01-26] MEDS: levETIRAcetam 500 MG TAB PO SCH (08:49)
[2019-01-26] MEDS: Finasteride 5 MG TAB PO SCH (08:49)
[2019-01-26] MEDS: Aspirin 81 mg Enteric Coated Tablet PO SCH (08:49)
[2019-01-26] MEDS: Apixaban 5 MG TAB PO SCH (08:49)
[2019-01-26] MEDS ORDERED: PROPOFOL 40 ML ONE (09:57)
--- NOTE | 2019-01-26 11:19 | PRG ---
DATE OF SERVICE: 01/26/2019 SUBJECTIVE: Mr. Guerrier seems to be doing fair. Continues in atrial fibrillation. Mild dizziness symptoms noted. OBJECTIVE: VITAL SIGNS: Blood pressure 126/79, heart rate 127, respirations 12. The patient is afebrile. GENERAL: Reveals an alert and oriented man, but aphasic, in no apparent distress. NECK: Supple. Jugular veins not distended. CHEST: Coarse without crackles. HEART: Sounds are irregularly irregular, S1 and S2 are variable. No murmur or gallop. ABDOMEN: Benign. Bowel sounds positive. EXTREMITIES: Lower extremities without edema, clubbing, or cyanosis. DATABASE: EKG reveals continued atrial fibrillation. ASSESSMENT AND PLAN: Mr. Guerrier is a pleasant 63-year-old man with history of recurrent atrial fibrillation, who was admitted after a recurrence even despite flecainide. He was transitioned from flecainide to amiodarone. He is here for a cardioversion today. GARETH did not reveal intracardiac clots, but reduced LVEF, has a change in antiarrhythmic agents. He underwent cardioversion. Please see separate report. Plan to continue amiodarone taper and he may be a good candidate for pulmonary venous isolation procedure at a later date after clinical stabilization and adequate anticoagulation on board. Job ID: [id number]
[2019-01-26 15:34] VITALS: BP 123/59; TEMP 98.1
--- NOTE | 2019-01-26 17:00 | OP ---
DATE OF PROCEDURE: 01/26/2019 PROCEDURE PERFORMED: Electrical cardioversion. REASON FOR PROCEDURE: Mr. Guerrier is a pleasant 63-year-old man with prior history of persistent atrial fibrillation despite flecainide causing current admission due to rapid rates. He is found to have reduced LVEF and flecainide was transitioned to amiodarone. He is here for a repeat cardioversion, hence paroxysmal atrial fibrillation is seen with rapid rates. DESCRIPTION OF PROCEDURE: The patient received propofol by Anesthesia specialist. After adequate level of sedation achieved, a synchronized 150-joule initially failed. About repositioning of pads, 300-joule shock promptly converted him back to sinus rhythm. CONCLUSION: Successful cardioversion. PLAN: Continue amiodarone taper down to 200 mg within the month gradually and then continue oral anticoagulation. Plan for possible ablation procedure in the future. We will see him back in the office as already scheduled. Job ID: [id number]
--- NOTE | 2019-01-27 09:04 | DIS ---
DATE OF ADMISSION: 01/20/2019 DATE OF DISCHARGE: 01/26/2019 ADDENDUM: HOSPITAL COURSE: The patient's discharge was placed on hold due to recurrent atrial fibrillation/flutter with rapid ventricular response requiring a Cardizem infusion in addition to IV digoxin. The patient was re-evaluated by the Electrophysiology Service, undergoing cardioversion on 01/26/2019 with successful return to sinus mechanism. The patient tolerated the procedure well and was monitored on the telemetry unit without evidence of recurrence. The patient continued on amiodarone 200 mg b.i.d. in addition to anticoagulation with Eliquis 5 mg b.i.d. The patient overall clinically stable with stable vital signs at the time of discharge. I have examined the patient at the time of discharge and discussed followup instructions with the patient and his mother. The family verbalized understanding and agreement, ready for discharge on 01/26/2019. Please see dictated discharge summary dated, 01/24/2019 for full details including home medications. Job ID: [id number]
--- NOTE | 2019-01-27 16:51 | EKG ---
Test Reason : POST CARDIOVERSION Blood Pressure : / mmHG Vent. Rate : 052 BPM Atrial Rate : 052 BPM P-R Int : 168 ms QRS Dur : 090 ms QT Int : 442 ms P-R-T Axes : -28 033 -57 degrees QTc Int : 411 ms Probable junctional or low atrial bradycardia Nonspecific ST and T wave abnormality Abnormal ECG When compared with ECG of 22-JAN-2019 12:00, No significant change was found Confirmed by DR. Ced MACKEY ([id number]) on 01/27/2019 4:50:58 PM Referred By: HIEU Confirmed By:DR. Ced MACKEY
== END 2019-01-26 16:10 | disposition home or self-care (01) | DRG 309 ==
LOC: ERS 20:43 → 2NO 23:00
PROVIDERS: ADMIT Internal Medicine; ATTEND Internal Medicine
PROC: 5A2204Z Restoration of Cardiac Rhythm, Single (ICD-10-PCS; principal; 2019-01-26)
DX: I48.0 Paroxysmal atrial fibrillation (principal); R47.01 Aphasia; N18.3 Chronic kidney disease, stage 3 (moderate); I42.9 Cardiomyopathy, unspecified; G40.909 Epilepsy, unspecified, not intractable, without status epilepticus; E78.5 Hyperlipidemia, unspecified; R62.50 Unspecified lack of expected normal physiological development in childhood; N40.0 Benign prostatic hyperplasia without lower urinary tract symptoms; I12.9 Hypertensive chronic kidney disease with stage 1 through stage 4 chronic kidney disease, or unspecified chronic kidney disease; F79 Unspecified intellectual disabilities; I34.0 Nonrheumatic mitral (valve) insufficiency; R19.7 Diarrhea, unspecified; I95.1 Orthostatic hypotension; Z79.82 Long term (current) use of aspirin; Z79.899 Other long term (current) drug therapy; Z87.820 Personal history of traumatic brain injury; Z98.890 Other specified postprocedural states
CPT/HCPCS: 36415; 80048; 80053; 82550; 82565; 83690; 83880; 84484; 85014; 85018; 85025; 85049; 85379; 92960; 93005; 93010; 93306; 93312; 96365; 96367; 96372; 96375; J1160; J1650; J2704; J3475; J3490

== ENCOUNTER 2019-05-25 12:28 | Outpatient (CLI) | payer MEDICARE, MEDICAID ==
[2019-05-25 14:35] LABS: Hemoglobin 16.5 g/dL (14.0-18.0); Mean Corpuscular Hemoglobin 33.5 pg (27.0-31.0); Mean Corpuscular Volume 98.7 fL (78.0-98.0); Mean Platelet Volume 8.3 fL (7.4-10.4); Platelet Count 199 thou/uL (130-400); RBC Distribution Width 11.9 % (11.5-14.5); Red Blood Cell (RBC) Count 4.92 mill/uL (4.70-6.10); White Blood Cell (WBC) Count 5.5 thou/uL (4.8-10.8)
[2019-05-25 14:40] LABS: Prothrombin Time 13.6 SEC (12.0-14.7)
[2019-05-25 14:41] LABS: PTT 35.3 SEC (22.9-36.1)
[2019-05-25 14:56] LABS: Anion Gap 12 mmol/L (10-20); BUN (Urea Nitrogen) 19 mg/dL (8.4-25.7); Calc. Creatinine Clearance 0 mL/min (70-130); Calcium 9.5 mg/dL (7.8-10.44); Carbon Dioxide 28 mmol/L (23-31); Chloride 105 mmol/L (98-107); Estimated GFR-MDRD 48; Glucose 83 mg/dL (80-115); Potassium 4.3 mmol/L (3.5-5.1); Sodium 141 mmol/L (136-145)
== END 2019-05-25 12:29 | disposition home or self-care (01) ==
LOC: LABBT 12:28
PROVIDERS: ATTEND Internal Medicine Cardiovascular Disease
DX: Z01.812 Encounter for preprocedural laboratory examination (principal); I48.91 Unspecified atrial fibrillation
CPT/HCPCS: 80048; 85027; 85610; 85730

== ENCOUNTER 2019-05-31 08:47 | Observation (INO) | payer MEDICARE, MEDICAID ==
[2019-05-25 12:45] VITALS: BMI 30.2
[2019-05-31] MEDS ORDERED: PHENYLEPHRINE-NS 100 MCG/ML 10 ML SYRINGE ONE (09:41)
[2019-05-31] MEDS ORDERED: Rocuronium Bromide 10 MG/ML (10ML VIAL) ONE (09:41)
[2019-05-31] MEDS ORDERED: Glycopyrrolate 0.2 MG/ML 5 ML SYRINGE ONE (09:41)
[2019-05-31] MEDS ORDERED: PROPOFOL 200 MG/20 ML VIAL ONE (09:41)
[2019-05-31] MEDS ORDERED: Ondansetron PF 4 MG/2 ML Vial ONE (09:41)
[2019-05-31] MEDS ORDERED: Lidocaine 1% PF 5 ML VIAL ONE (09:41)
[2019-05-31] MEDS ORDERED: Heparin (Artline) 1,500 ML ONE (10:43)
[2019-05-31] MEDS ORDERED: Isoproterenol 0.2 MG/1 ML AMP ONE (10:43)
[2019-05-31] MEDS ORDERED: Heparin 10,000 UNITS/1 ML VIAL ONE ×2 (10:54→14:15)
[2019-05-31] MEDS ORDERED: Midazolam HCl 2 mg/2 ml Vial ONE (11:14)
[2019-05-31] MEDS ORDERED: Fentanyl 100 MCG/2 ML VIAL ONE ×3 (11:14→15:25)
[2019-05-31] MEDS ORDERED: Heparin 25,000 units/D5W 500 ML ONE (11:30)
[2019-05-31] MEDS ORDERED: Protamine Sulfate 50 MG/5 ML VIAL ONE (14:15)
[2019-05-31] MEDS ORDERED: SUGAMMADEX SODIUM 200 MG/2 ML VIAL ONE (14:25)
[2019-05-31] MEDS ORDERED: Ketorolac Tromethamine 30 MG/ML VIAL IVP PRN (14:42)
[2019-05-31] MEDS ORDERED: Promethazine HCl 25 MG/ML VIAL SLOW IVP PRN (14:45)
[2019-05-31] MEDS ORDERED: Promethazine HCl 25 MG/ML VIAL IM PRN (14:45)
[2019-05-31] MEDS ORDERED: Ondansetron HCl/PF 4 MG/2 ML Vial IVP PRN (14:45)
--- NOTE | 2019-05-31 17:14 | OP ---
DATE OF PROCEDURE: 05/31/2019 PROCEDURE PERFORMED: Electrophysiology study and radiofrequency ablation. ADDITIONAL REFERRING PHYSICIAN: Dr. Tyler Coelho. REASON FOR PROCEDURE: Mr. Guerrier is a 63-year-old man with history of mild mental retardation, persistent atrial fibrillation, requiring amiodarone suppression. He is here for a pulmonary venous isolation procedure. DESCRIPTION OF PROCEDURE: The patient received propofol by anesthesia specialist and general anesthesia as well. After adequate level of sedation achieved, the left and right femoral veins were prepped, draped, and anesthetized using subcutaneous lidocaine, and under ultrasound guidance, both femoral veins were accessed. On the left side, an 11-U[place]ayan sheath was used to advance the intracardiac echo probe into the right atrium, where it was used throughout the procedure to monitor transseptal puncture, the pericardial space as well as the catheter manipulation. Also, on the left femoral vein, a Preface long sheath was advanced, through which a duo-Deca catheter was advanced into the right atrial and the CS positions. Following that, on the right femoral venous access, two 8-[place] short sheaths were introduced, through which a ThermoCool SFST catheter, which was used to advanced to the right atrium. 3D map of the right atrium was obtained, delineating the CS and His bundle locations as well. Following that, the right femoral venous short sheaths were exchanged to SL1 catheters. IV heparin was administered at this point and in a bolus and drip and ACTs were monitored and heparin was adjusted to keep ACT over 350. The SL1 sheaths were used to perform transseptal punctures with the help of a powered enMarkit transseptal needle x2. Through the transseptal sheaths, a ThermoCool SFST catheter and a 20-pole Lasso catheter was advanced to the left atrium. 3D map of the left atrium was obtained and 4-vein pulmonary venous isolation procedure was performed. Also, superior and inferior lines were placed as well to isolate the posterior wall. Throughout the case, an esophageal temperature probe was used to monitor temperature in the esophagus to avoid excessive heating. During the procedure, the patient converted back to sinus rhythm and catheter was advanced to the left ventricle, and VA conduction block was observed at 400 milliseconds. Antegrade conduction block was at 370 milliseconds. The sinus node recovery time was 1128. Corrected sinus node recovery time was 210 milliseconds. AV patti ERP was 600/460 milliseconds. Concentric retrograde VA conduction and no dual AV node physiology was present. Isuprel was administered at this point and all pulmonary veins were checked for any reconnection. Also, posterior wall was checked as well and any reconnections were re-ablated. At this point, the catheter was withdrawn to the right atrium. Heparin was stopped. Isuprel was stopped as well. Cavotricuspid isthmus ablation was performed during proximal CS pacing, following the cavotricuspid isthmus conduction from baseline 40 to 130 milliseconds. Conduction block was observed by the longest transisthmus time adjacent to the ablation line noted. Also, the CR activation sequence was consistent with the block as well. Total of 30 min RF energy delivered @ 40Watts. At the end of the case, burst atrial pacing was performed, did not re-induce arrhythmias. The long sheaths were exchanged to short sheaths and the IV heparin was reversed with protamine. The intracardiac probe did not reveal any pericardial fluid. Also, cardiac silhouette on fluoroscopy did not change from baseline. All 4 venous access sites were sealed with Vascade closure device. The patient tolerated the procedure well. No complications noted. CONCLUSION: 1. Successful pulmonary venous isolation procedure and posterior wall ablation, terminating the atrial fibrillation. 2. Atrial fibrillation, progressing to atrial flutter, appears to be typical isthmus dependent, cavotricuspid isthmus ablation was also performed. 3. No inducible atrial arrhythmias after ablation. 4. No evidence of accessory pathway or dual AV patti physiology present. 5. Normal AV patti and sinus patti and His-Purkinje system function. PLAN: Continue anticoagulation. Stop amiodarone therapy. Monitor for recurrent arrhythmias. Job ID: [id number] [facility]
[2019-05-31] MEDS: Sucralfate 1 GM TAB PO SCH ×2 (17:54→20:57)
[2019-05-31] MEDS: Apixaban 5 MG TAB PO SCH (20:57)
[2019-05-31] MEDS: levETIRAcetam 500 MG TAB PO SCH (20:57)
[2019-05-31] MEDS: Dicyclomine 20 MG TAB PO SCH (20:57)
[2019-05-31] MEDS ORDERED: Montelukast Sodium 10 mg Tablet PO SCH (21:00)
[2019-05-31] MEDS ORDERED: Ezetimibe 10 MG TAB PO SCH (21:00)
[2019-06-01 04:39] LABS: Hemoglobin 13.7 g/dL (14.0-18.0); Platelet Count 156 thou/uL (130-400)
[2019-06-01 07:55] VITALS: TEMP 98.1
[2019-06-01] MEDS ORDERED: FLU VACC QS2019-20(6MOS UP)/PF 60 MCG/0.5 ML SYRINGE IM ONE (09:00)
[2019-06-01] MEDS ORDERED: Aspirin 81 mg Enteric Coated Tablet PO SCH (09:00)
[2019-06-01] MEDS: Dicyclomine 20 MG TAB PO SCH (09:20)
[2019-06-01] MEDS: Sucralfate 1 GM TAB PO SCH (09:20)
[2019-06-01] MEDS: Apixaban 5 MG TAB PO SCH (09:20)
[2019-06-01] MEDS: levETIRAcetam 500 MG TAB PO SCH (09:20)
[2019-06-01 11:36] VITALS: BP 100/55
--- NOTE | 2019-06-02 15:34 | DIS ---
DATE OF ADMISSION: 05/31/2019 DATE OF DISCHARGE: 06/01/2019 Dictated by Yaneth Paulson PA-C, for Dr. Дмитрий Solis. ADMITTING PHYSICIAN: Дмитрий Solis MD DISCHARGING PHYSICIAN: Дмитрий Solis MD DIAGNOSIS: Atrial fibrillation. PROCEDURES PERFORMED: Include three dimensional mapping electrophysiology study and ablation of atrial fibrillation as well as the cavotricuspid isthmus. HISTORY OF PRESENT ILLNESS: Mr. Guerrier is a 63-year-old gentleman with mental retardation in the care of his mother. He had persistent atrial fibrillation requiring amiodarone for suppression, was taken to the EP lab for pulmonary venous isolation procedure. He underwent successful pulmonary venous isolation in addition to having the posterior wall ablated terminating in his atrial fibrillation. The atrial fibrillation then progressed to atrial flutter that appears to be typical isthmus dependent and cavotricuspid isthmus ablation was also performed. He is noninducible for atrial arrhythmias post ablation. There was no evidence of accessory pathway or dual AV patti physiology present. He had normal AV patti and sinus node function in addition to normal conduction along His-Purkinje system. Recommendations post ablation are to continue anticoagulation, stop amiodarone and antiarrhythmic therapy and monitor for recurrence. SUBJECTIVE: Mr. Guerrier is feeling well today. He denies any heart racing, palpitations, chest pain, pressure, syncope, near syncope, stroke, stroke-like symptoms, bleeding at the groin site. He does report it was slightly tender in the groin sites upon palpation. OBJECTIVE: VITAL SIGNS: Temperature 98.1, pulse 61, blood pressure 97/56, respirations 18, and oxygen 97% on room air. GENERAL: Patient is alert, he is oriented. He is a fair historian despite his mental retardation. He is in no apparent distress. NECK: Supple without jugular venous distention. LUNGS: Clear to auscultation bilaterally without wheezes, crackles, or rhonchi. CARDIAC: His heart rate is irregularly irregular with crisp S1 and S2. PMI is nondisplaced. ABDOMEN: Soft, nontender without palpable masses. Hepatojugular reflux negative. EXTREMITIES: Warm and dry to touch. Well perfused without clubbing, cyanosis, or edema. Bilateral groin sites are stable without hematoma or evidence of bleeding complications post sheath removal. He has been ambulating throughout the alcaraz. Gait is stable. NEUROLOGIC: Nonfocal. DISCHARGE INSTRUCTIONS: Refer to [facility] post ablation packet. No soaking baths or lifting more than 10 pounds for 1 week. Light activity for one week, then resume activity gradually and as tolerated. Continue oral anticoagulation with Eliquis without interruption for at least 6-8 weeks. Contact [facility] with any postablation questions. DISCHARGE MEDICATIONS: Resuming home medications of 1. Singulair 10 mg at bedtime. 2. Keppra 500 mg b.i.d. 3. Zetia 10 mg at bedtime. 4. Bentyl 20 mg p.o. b.i.d. 5. Aspirin 81 mg daily. 6. Eliquis 5 mg b.i.d. New prescriptions sent to local pharmacy for Carafate 1 g p.o. before meals and at bedtime x2 weeks. Protonix 40 mg daily for 1 month, furosemide 40 mg p.o. p.r.n. shortness of breath, fluid retention to be taken with K-Dur 20 mEq. CONDITION AT DISCHARGE: Stable. FOLLOWUP: Return to clinic in 6 weeks or sooner. Job ID: [id number]
== END 2019-06-01 12:14 | disposition home or self-care (01) ==
LOC: CCL 08:47 → 2SW 15:29
PROVIDERS: ADMIT Internal Medicine Cardiovascular Disease; ATTEND Internal Medicine Cardiovascular Disease
PROC: 4A023FZ Measurement of Cardiac Rhythm, Percutaneous Approach (ICD-10-PCS; principal; 2019-05-31)
PROC: 4A0234Z Measurement of Cardiac Electrical Activity, Percutaneous Approach (ICD-10-PCS; 2019-05-31)
PROC: 02583ZZ Destruction of Conduction Mechanism, Percutaneous Approach (ICD-10-PCS; 2019-05-31)
DX: I48.0 Paroxysmal atrial fibrillation (principal); I48.92 Unspecified atrial flutter; F79 Unspecified intellectual disabilities; I42.9 Cardiomyopathy, unspecified; G80.9 Cerebral palsy, unspecified; E78.5 Hyperlipidemia, unspecified; Z79.01 Long term (current) use of anticoagulants; Z79.82 Long term (current) use of aspirin; Z79.899 Other long term (current) drug therapy
CPT/HCPCS: 76942; 82565; 85014; 85018; 85049; 85347 ×2; 93005 ×2; 93613; 93622; 93623; 93655; 93656; 93662; C1731; C1732 ×3; C1759; C1769; 36415; 51798; 93010; 96374; G0378; J1644; J1885; J2001; J2250; J2405; J2704; J2720; J3010

== ENCOUNTER → 2019-07-02 | Day surgery (SDC) | payer MEDICARE, MEDICAID ==
[2019-07-01 15:52] VITALS: BMI 31.6
[2019-07-02 11:33] LABS: #Basophils 0.1 thou/uL (0.0-0.2); #Eosinphils 0.1 thou/uL (0.0-0.7); #Lymphocytes 2.5 thou/uL (1.20-3.40); #Monocytes 0.6 thou/uL (0.11-0.59); #Neutrophils 2.7 thou/uL (1.40-6.50); %Basophils 1.3 % (0.0-1.0); %Eosinophils 1.2 % (0.0-10.0); %Lymphocytes 41.9 % (21.0-51.0); %Monocytes 9.3 % (0.0-10.0); %Neutrophils 46.3 % (42.0-75.0); Hemoglobin 13.1 g/dL (14.0-18.0); Mean Corpuscular HGB CONC 34.2 g/dL (32.0-36.0); Mean Corpuscular Hemoglobin 33.9 pg (27.0-31.0); Mean Corpuscular Volume 99.1 fL (78.0-98.0); Mean Platelet Volume 8.7 fL (7.4-10.4); Platelet Count 173 thou/uL (130-400); RBC Distribution Width 12.8 % (11.5-14.5); Red Blood Cell (RBC) Count 3.88 mill/uL (4.70-6.10); White Blood Cell (WBC) Count 5.9 thou/uL (4.8-10.8)
[2019-07-02 11:41] LABS: INR-International Normal Ratio 1.2; PTT 37.4 SEC (22.9-36.1); Prothrombin Time 14.9 SEC (12.0-14.7)
[2019-07-02 11:58] LABS: Anion Gap 10 mmol/L (10-20); BUN (Urea Nitrogen) 23 mg/dL (8.4-25.7); Calc. Creatinine Clearance 72 mL/min (70-130); Calcium 8.7 mg/dL (7.8-10.44); Carbon Dioxide 28 mmol/L (23-31); Chloride 108 mmol/L (98-107); Estimated GFR-MDRD 44; Glucose 94 mg/dL (80-115); Potassium 4.5 mmol/L (3.5-5.1); Sodium 141 mmol/L (136-145)
--- NOTE | 2019-07-02 14:18 | OP ---
DATE OF PROCEDURE: 07/02/2019 PROCEDURE PERFORMED: Electrical cardioversion. REASON FOR PROCEDURE: Mr. Guerrier is a 63-year-old gentleman with history of persistent atrial fibrillation, suppressed with amiodarone and flecainide in the past. He has undergone a pulmonary venous isolation procedure in 05/2019. He is here for a cardioversion, hence early recurrence of an atypical atrial flutter. He has been started on flecainide last night. He is on chronic anticoagulation. DESCRIPTION OF PROCEDURE: The patient received propofol by Anesthesia specialist. After adequate level of sedation achieved, a synchronized 70-joule shocks promptly converted the patient back to sinus rhythm. The patient tolerated the procedure well. No complications noted. RESULTS: Successful cardioversion. PLAN: Continue short-term flecainide and Eliquis therapy. Job ID: [id number]
--- NOTE | 2019-07-05 09:02 | EKG ---
Test Reason : PRE-CARIOVERSION Blood Pressure : / mmHG Vent. Rate : 140 BPM Atrial Rate : 280 BPM P-R Int : 000 ms QRS Dur : 106 ms QT Int : 286 ms P-R-T Axes : 101 002 -22 degrees QTc Int : 436 ms Atrial flutter with 2:1 A-V conduction Nonspecific ST and T wave abnormality Abnormal ECG Confirmed by NO POLK ([id number]) on 07/05/2019 9:02:20 AM Referred By: HIEU Confirmed By:NO POLK
== END ==
LOC: SDC 10:32
PROVIDERS: ATTEND Internal Medicine Cardiovascular Disease
PROC: 5A2204Z Restoration of Cardiac Rhythm, Single (ICD-10-PCS; principal; 2019-07-02)
DX: I48.4 Atypical atrial flutter (principal); I48.19 Other persistent atrial fibrillation; I42.9 Cardiomyopathy, unspecified; G80.9 Cerebral palsy, unspecified; F79 Unspecified intellectual disabilities; R47.01 Aphasia; E78.5 Hyperlipidemia, unspecified; Z79.01 Long term (current) use of anticoagulants; Z79.82 Long term (current) use of aspirin; Z79.899 Other long term (current) drug therapy
CPT/HCPCS: 80048; 85025; 85610; 85730; 92960; 93005; 93010

== ENCOUNTER 2020-09-20 10:51 | Outpatient (CLI) | payer MEDICARE, MEDICAID ==
[2020-09-20 13:40] LABS: Hemoglobin 14.7 g/dL (13.5-17.5); Mean Corpuscular HGB CONC 34.3 g/dL (32.0-36.0); Mean Corpuscular Hemoglobin 33.3 pg (27.0-33.0); Mean Corpuscular Volume 97.3 fl (81.2-95.1); Platelet Count 184 10x3/uL (150-450); RBC Distribution Width 12.7 % (11.5-14.5); Red Blood Cell (RBC) Count 4.41 10x6/uL (4.32-5.72); White Blood Cell (WBC) Count 6.2 10x3/uL (3.5-10.5)
[2020-09-20 14:33] LABS: PTT 30.8 sec (22.0-33.0); Prothrombin Time 10.8 sec (9.5-12.1)
[2020-09-20 14:39] LABS: Anion Gap 12 mmol/L (10-20); BUN (Urea Nitrogen) 23 mg/dL (8.4-25.7); Calc. Creatinine Clearance 0 mL/min (70-130); Calcium 9.1 mg/dL (7.8-10.44); Carbon Dioxide 25 mmol/L (23-31); Chloride 106 mmol/L (98-107); Glucose 82 mg/dL (80-115); Potassium 4.4 mmol/L (3.5-5.1); Sodium 139 mmol/L (136-145)
[2020-09-20 21:21] LABS: SARS-CoV-2 PCR by NAA Not Detected (NotDetected)
== END 2020-09-20 10:52 | disposition home or self-care (01) ==
LOC: LABBT 10:51
PROVIDERS: ATTEND Internal Medicine Cardiovascular Disease
DX: Z01.818 Encounter for other preprocedural examination (principal); I48.91 Unspecified atrial fibrillation; Z20.822 Contact with and (suspected) exposure to COVID-19
CPT/HCPCS: 80048; 85027; 85610; 85730; U0003; U0005; 87635; 93005; 93010

== ENCOUNTER 2020-09-25 10:02 | Observation (INO) | payer MEDICARE, MEDICAID ==
[2020-09-22 10:53] VITALS: BMI 30.9
[2020-09-25] MEDS ORDERED: Heparin 10,000 UNITS/ 10 ML VIAL ONE ×2 (11:36→13:09)
[2020-09-25] MEDS ORDERED: PHENYLEPHRINE-NS 100 MCG/ML 10 ML SYRINGE ONE (12:16)
[2020-09-25] MEDS ORDERED: Vecuronium 10 MG VIAL ONE (12:16)
[2020-09-25] MEDS ORDERED: Glycopyrrolate 0.2 MG/ML 5 ML SYRINGE ONE (12:16)
[2020-09-25] MEDS ORDERED: Ondansetron PF 4 MG/2 ML Vial ONE (12:16)
[2020-09-25] MEDS ORDERED: Dexamethasone 20 MG/5 ML VIAL ONE (12:16)
[2020-09-25] MEDS ORDERED: Lidocaine 1% PF 5 ML VIAL ONE ×2 (12:16)
[2020-09-25] MEDS ORDERED: PROPOFOL 200 MG/20 ML VIAL ONE (12:16)
[2020-09-25] MEDS ORDERED: Rocuronium Bromide 10 MG/ML (10ML VIAL) ONE (12:16)
[2020-09-25] MEDS ORDERED: Isoproterenol 0.2 MG/1 ML AMP ONE (12:45)
[2020-09-25] MEDS ORDERED: Heparin 25,000 units/D5W 500 ML ONE (12:45)
[2020-09-25] MEDS ORDERED: Fentanyl 100 MCG/2 ML VIAL ONE ×3 (13:42→16:48)
[2020-09-25] MEDS ORDERED: Protamine Sulfate 50 MG/5 ML VIAL ONE (15:24)
[2020-09-25] MEDS ORDERED: Promethazine HCl 25 MG/ML VIAL IM PRN (15:54)
[2020-09-25] MEDS ORDERED: Promethazine HCl 25 MG/ML VIAL SLOW IVP PRN (15:54)
[2020-09-25] MEDS ORDERED: Ondansetron HCl/PF 4 MG/2 ML Vial IVP PRN (15:54)
[2020-09-25] MEDS ORDERED: Ketorolac Tromethamine 30 MG/ML VIAL IVP PRN (19:53)
[2020-09-25] MEDS: levETIRAcetam 500 MG TAB PO SCH (20:43)
[2020-09-25] MEDS: Apixaban 5 MG TAB PO SCH (20:43)
[2020-09-25] MEDS: Dicyclomine 20 MG TAB PO SCH (20:43)
[2020-09-25] MEDS ORDERED: Montelukast Sodium 10 mg Tablet PO SCH (21:00)
[2020-09-25] MEDS: Sucralfate 1 GM TAB PO SCH (23:51)
[2020-09-26] MEDS: Sucralfate 1 GM TAB PO SCH (05:55)
[2020-09-26] MEDS: Apixaban 5 MG TAB PO SCH (08:20)
[2020-09-26] MEDS: Dicyclomine 20 MG TAB PO SCH (08:20)
[2020-09-26] MEDS: levETIRAcetam 500 MG TAB PO SCH (08:21)
[2020-09-26 08:34] VITALS: BP 117/65; TEMP 98
[2020-09-26] MEDS ORDERED: Furosemide 40 MG TAB PO PRN (08:47)
[2020-09-26] MEDS ORDERED: Potassium Chloride 20 MEQ TAB PO PRN (08:47)
[2020-09-26] MEDS ORDERED: Aspirin 81 mg Enteric Coated Tablet PO SCH (09:00)
[2020-09-26] MEDS ORDERED: Ezetimibe 10 MG TAB PO SCH (09:00)
[2020-09-26] MEDS ORDERED: busPIRone HCl 10 MG TAB PO SCH (09:00)
[2020-09-26] MEDS ORDERED: Fluticasone Propionate Nasal Spray 16 gm Bottle NASAL SCH (09:00)
== END 2020-09-26 11:47 | disposition home or self-care (01) ==
LOC: CCL 10:02 → 2SW 10:32
PROVIDERS: ADMIT Internal Medicine Cardiovascular Disease; ATTEND Internal Medicine Cardiovascular Disease
PROC: 02583ZZ Destruction of Conduction Mechanism, Percutaneous Approach (ICD-10-PCS; principal; 2020-09-25)
PROC: 02K83ZZ Map Conduction Mechanism, Percutaneous Approach (ICD-10-PCS; 2020-09-25)
PROC: 4A023FZ Measurement of Cardiac Rhythm, Percutaneous Approach (ICD-10-PCS; 2020-09-25)
PROC: 4A0234Z Measurement of Cardiac Electrical Activity, Percutaneous Approach (ICD-10-PCS; 2020-09-25)
DX: I48.0 Paroxysmal atrial fibrillation (principal); I48.92 Unspecified atrial flutter; I42.9 Cardiomyopathy, unspecified; G80.9 Cerebral palsy, unspecified; E78.5 Hyperlipidemia, unspecified; F79 Unspecified intellectual disabilities; Z79.01 Long term (current) use of anticoagulants; Z79.82 Long term (current) use of aspirin; Z79.899 Other long term (current) drug therapy
CPT/HCPCS: 76942; 85347 ×2; 93005 ×2; 93613; 93622; 93623; 93655; 93656; 93657; 93662; C1732 ×2; C1759; C1884; G0378 ×2; 93010; J1100; J1644; J2405; J2704; J2720; J3010